=== PATIENT | male | born 1940 | race Caucasian/White ===

== ENCOUNTER 2023-06-20 11:04 | Outpatient (RCR) | payer OTHER, SELFPAY | END 2023-06-20 23:59 | disposition home or self-care (01) | LOC: RPT 11:04 | PROVIDERS: ATTENDING PHYSICIAN Physical Medicine & Rehabilitation Pain Medicine; FAMILY PHYSICIAN Family Medicine | DX: M48.062 Spinal stenosis, lumbar region with neurogenic claudication (principal); M47.816 Spondylosis without myelopathy or radiculopathy, lumbar region; Z73.6 Limitation of activities due to disability; R26.89 Other abnormalities of gait and mobility; M62.81 Muscle weakness (generalized) | CPT/HCPCS: 97162 ==

== ENCOUNTER 2023-07-20 12:53 | Outpatient (RCR) | payer OTHER, SELFPAY | END 2023-07-20 23:59 | disposition home or self-care (01) | LOC: RPT 12:53 | PROVIDERS: ATTENDING PHYSICIAN Physical Medicine & Rehabilitation Pain Medicine; FAMILY PHYSICIAN Family Medicine | DX: M48.062 Spinal stenosis, lumbar region with neurogenic claudication (principal); M47.816 Spondylosis without myelopathy or radiculopathy, lumbar region; Z73.6 Limitation of activities due to disability; R26.89 Other abnormalities of gait and mobility; M62.81 Muscle weakness (generalized) | CPT/HCPCS: 97010; 97110 ==

== ENCOUNTER 2023-08-03 14:59 | Outpatient (RCR) | payer OTHER, SELFPAY | END 2023-08-03 15:58 | disposition home or self-care (01) | LOC: RPT 14:59 | PROVIDERS: ATTENDING PHYSICIAN Physical Medicine & Rehabilitation Pain Medicine; FAMILY PHYSICIAN Family Medicine | DX: M48.062 Spinal stenosis, lumbar region with neurogenic claudication (principal); M47.816 Spondylosis without myelopathy or radiculopathy, lumbar region; Z73.6 Limitation of activities due to disability; R26.89 Other abnormalities of gait and mobility | CPT/HCPCS: 97010; 97110 ==

== ENCOUNTER → 2023-08-19 20:03 | Outpatient (REF) | payer OTHER, SELFPAY | LOC: MRI 3T 20:03 | PROVIDERS: ATTENDING PHYSICIAN Physical Medicine & Rehabilitation Pain Medicine; FAMILY PHYSICIAN Family Medicine | DX: M54.16 Radiculopathy, lumbar region (principal) | CPT/HCPCS: 72148 ==

== ENCOUNTER 2023-08-30 10:52 | Emergency (ER) | payer OTHER, SELFPAY ==
[2023-08-30 10:52] VITALS: BMI 29.7
[2023-08-30 10:59] VITALS: BP 137/74
--- NOTE | 2023-08-30 12:22 | ED.GENMED ---
History of Present Illness
General
Chief Complaint: DVT/Possible Blood Clot
Source: patient and family
Exam Limitations: none
Time Seen by Provider: 08/30/23 11:28
Nursing documentation reviewed up to this point in time: agreed with
Travel History
Have you had any contact with someone who has COVID-19?: No
Do you have any symptoms of coronavirus? Fever > 100 degrees, chills, cough, shortness of breath, sore throat, loss of taste or smell, muscle aches, or headache?: No
History of Present Illness
History of Present Illness:
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
along with swelling, noted 1 day after receiving his epidural injection. Denies fever or chills. Denies direct trauma. Denies new injury. Denies loss of sensation or weakness. Patient denies any pain at rest but is brought on with
weightbearing. Patient currently uses walker at baseline. Denies abdominal pain. Denies nausea or vomiting.
Past History
Past History
ED Past Medical History: CAD, HTN, Hypercholesterolemia and Other (Lumbar disc disease, BPH, UTI)
ED Past Surgical History: Cardiac (PTCA with stent February 2007) and Orthopedic (Knee replacement)
Social History
Tobacco: Non-smoker
Alcohol: Occasional (Rare)
Drug: None
Personal:
Living: with family
Employment: Retired
Family History
Family History: Hypertension
Review of Systems
Review of Systems
Allergies reviewed?: Yes
All Other Systems: ROS reviewed and negative except as documented in HPI and ROS
Constitutional: Reports no symptoms; Denies fever
Respiratory: Reports no symptoms; Denies trouble breathing
Cardiac: Reports no symptoms
ABD/GI: Reports no symptoms; Denies nausea or vomiting
Musculoskeletal: Reports edema and back pain
Skin: Reports no symptoms
Phy Exam
Physical Exam
Physical Exam:
Physical Exam
General: no apparent distress, not acutely ill. afebrile
Head: nc/at. eomi
Neck: supple. normal range of motion.
Abdomen: normal bowel sounds. not tender.
Neuro: alert and oriented. no focal neurological deficits
Skin: no rash
Psychiatric: well kept. interactive and cooperative
Extremities: no edema. no calf tenderness. mild tenderness to palpation over right lateral hip without erythema/ecchymosis.
Course
Orders/Labs/Results
Orders:
Orders
08/30/23 11:38
CR Hip - RT w/wo Pel 2-3 Vw* Urgent
Comment:
Reason For Exam: pain w swelling
Include a pelvis x-ray?: Yes
Legs, Right US [US Periph Venous LOWER Ext RT] Urgent
Comment:
Reason For Exam: swelling
Vital Signs
Initial and Last Documented VS:
Initial Vital Signs
Temp Pulse Resp BP Pulse Ox
98.7 F 64 20 137/74 97
08/30/23 10:59 08/30/23 10:59 08/30/23 10:59 08/30/23 10:59 08/30/23 10:59
Last Documented Vital Signs
Temp Pulse Resp BP Pulse Ox
98.3 F 59 20 178/83 98
08/30/23 13:20 08/30/23 13:20 08/30/23 13:20 08/30/23 13:20 08/30/23 13:20
MDM/Problems Addressed
MDM/Problems Addressed:
US LE: no DVT
X-ray hip/pelvis: arthritic changes noted.
History/exam consistent with ongoing chronic back pain, likely with possible trochanteric bursitis. Pt already has an appt with orthopaedic surgery later this afternoon. Otherwise, patient is afebrile, hemodynamically stable, and nontoxic appearing
at time of discharge, to the care of his family.
*Critical Care Note
Total Time (30-74mins, 75-104mins- exclusive of procedures): Not Applicable
ED Attending Note
-
Portions of this chart may have been created with voice recognition software.� Occasional wrong word or��sound alike� substitutions may have occurred due to the inherent limitations of voice recognition software.
Discharge Plan
Departure
Patient Disposition: Home (Routine Discharge)
Date of Disposition: 08/30/23
Time of Disposition: 13:02
Patient with high blood pressure during this ER visit?: Yes
Condition: Good
Discharge Problem:
Back pain, Leg swelling
Instructions: Back Pain
Prescriptions:
No Action
aspirin 81 MG tablet,delayed release (DR/EC)
81 mg PO DAILY
finasteride 5 MG tablet
5 mg PO DAILY
Referrals:
Kwan Newberry MD [Family Provider] -
Activity Restrictions/Additional Instructions:
As discussed, please follow up with your orthopaedic surgeon, as scheduled later this afternoon for further evaluation and treatment.
Interventions
Interventions:
*Risk Screen - Suicide Last Done: 08/30/23 10:59
*General Assessment Last Done: 08/30/23 10:59
*Neglect/Abuse Screening Last Done: 08/30/23 10:59
*ED COVID-19 Vaccine History Last Done: 08/30/23 11:50
*Nursing Disposition Last Done: 08/30/23 13:20
ED- Cardiac Assessment Last Done: 08/30/23 11:48
ED- Pulmonary Assessment Last Done: 08/30/23 11:48
ED-Peripheral Vascular Assessment Last Done: 08/30/23 11:48
ED-Skin Assessment Last Done: 08/30/23 11:48
Discharge Date and Time
Discharge Date/Time: 08/30/23 13:21
Print Language: [place]
[2023-08-30 13:20] VITALS: BP 178/83
== END 2023-08-30 13:21 | disposition home or self-care (01) ==
LOC: EMR 10:52
PROVIDERS: EMERGENCY PHYSICIAN Emergency Medicine; FAMILY PHYSICIAN Family Medicine
DX: M54.9 Dorsalgia, unspecified (principal); M79.604 Pain in right leg; G89.29 Other chronic pain; I10 Essential (primary) hypertension
CPT/HCPCS: 99284; 73502; 93971

== ENCOUNTER → 2023-09-05 07:24 | Outpatient (REF) | payer OTHER, SELFPAY | LOC: EMG 07:24 | PROVIDERS: ATTENDING PHYSICIAN Physician Assistant; FAMILY PHYSICIAN Family Medicine | DX: M54.16 Radiculopathy, lumbar region (principal); M48.062 Spinal stenosis, lumbar region with neurogenic claudication; R20.0 Anesthesia of skin | CPT/HCPCS: 95886; 95910 ==

== ENCOUNTER 2023-10-25 15:57 | Emergency (ER) | payer OTHER, SELFPAY ==
[2023-10-25 16:00] VITALS: BP 118/92
--- NOTE | 2023-10-25 16:34 | ED.GENMED ---
History of Present Illness
General
Chief Complaint: Musculo-Skeletal Complaint
Source: patient and family
Exam Limitations: none
Time Seen by Provider: 10/25/23 16:17
Nursing documentation reviewed up to this point in time: agreed with
History of Present Illness
History of Present Illness:
83-year-old male with past medical history of heart disease presenting to the emergency department today with concerns of left upper leg discomfort has been intermittent over the past month feels a muscle spasm. Seems to last for a few minutes at a
time and is very severe. Denies any symptoms at this point. Denies any specific urinary symptoms at this moment any abdominal pain fevers. Does have history of back issues.
Past History
Past History
ED Past Medical History: CAD, HTN, Hypercholesterolemia and Other (Lumbar disc disease, BPH, UTI)
ED Past Surgical History: Cardiac (PTCA with stent February 2007) and Orthopedic (Knee replacement)
Social History
Tobacco: Non-smoker
Alcohol: Occasional (Rare)
Drug: None
Personal:
Living: with family
Employment: Retired
Family History
Family History: Hypertension
Review of Systems
Review of Systems
Allergies reviewed?: Yes
All Other Systems: ROS reviewed and negative except as documented in HPI and ROS
Phy Exam
Physical Exam
Physical Exam:
GENERAL: Alert , in no apparent distress
EYE: pupils equal and reactive
NECK: Supple, no significant adenopathy.
ENT: o/p clr, mmm.
CARDIAC: Regular rate and rhythm .
LUNGS: Clear breath sounds bilaterally, no acute respiratory distress, no wheezes/rales/rhonchi
ABDOMEN: Soft, without focal tenderness, no r/g, no cvat
NEUROLOGICAL: Alert and oriented, no focal neuro deficits
SKIN: Warm and dry, skin intact.
MUSCULOSKELETAL: No edema, well perfused.
PSYCH: Normal and appropriate interaction.
Course
Orders/Labs/Results
Orders:
Orders
10/25/23 16:56
Lumbar Spine, 2 or 3 View [CR Lumbar Spine 2 Or 3 Views] Urgent
Comment:
Reason For Exam: low back pain
Venous Doppler Lwr Ext Left [US Periph Venous LOWER Ext LT] Urgent
Comment:
Reason For Exam: thigh pain
10/25/23 17:10
BMP [Basic Metabolic Panel] Urgent
CBC/With Diff [Complete Blood Count/With Diff] Urgent
Abnormal Lab Results
10/25/23
17:10
RBC 4.03 L 10^6/uL
(4.70-6.10)
MCV 97.0 H fL
(80.0-94.0)
MCH 32.5 H pg
(27.0-31.0)
Absolute Monos (auto) 0.7 H 10^3/uL
(0.1-0.6)
Lymphocytes % 20.2 L %
(20.5-51.1)
Monocytes % 9.6 H %
(1.7-9.3)
10/25/23 17:10
10/25/23 17:10
Vital Signs
Initial and Last Documented VS:
Initial Vital Signs
Temp Pulse Resp BP Pulse Ox
97.4 F 71 16 118/92 98
10/25/23 16:00 10/25/23 16:00 10/25/23 16:00 10/25/23 16:00 10/25/23 16:00
Last Documented Vital Signs
Temp Pulse Resp BP Pulse Ox
97.4 F 71 16 118/92 98
10/25/23 16:00 10/25/23 16:00 10/25/23 16:00 10/25/23 16:00 10/25/23 16:00
MDM/Problems Addressed
MDM/Problems Addressed:
83-year-old male presenting to the emergency department today with concerns of left upper thigh discomfort described as spasm. Seems to be to the inner thigh. On arrival here vital signs are normal patient no distress no reproduced symptoms. He
claims that the symptoms are intermittent. Ultrasound was performed of the leg without acute abnormalities x-ray of the back without acute abnormalities either. Consistent with spasm. It was explained to the patient as well as the patient's
family that it is not advisable to use a muscle relaxer at his age considering this can increase risk of falling. They claim that he lives in a place where he does have help and would be able to be monitored while taking medication and that when he
gets the potential spasm that it is unbearable pain that they would need a medication to give as needed. It was explained that there is certainly risk of taking muscle relaxer but after gauging risk-benefit ratio with the family and having a
thorough discussion they elected to try a small dose of Valium as needed but will need to monitor very closely at home when doing so. Otherwise patient stable for discharge return precautions given.
*Critical Care Note
Total Time (30-74mins, 75-104mins- exclusive of procedures): Not Applicable
ED Attending Note
-
Portions of this chart may have been created with voice recognition software.� Occasional wrong word or��sound alike� substitutions may have occurred due to the inherent limitations of voice recognition software.
Discharge Plan
Departure
Patient Disposition: Home (Routine Discharge)
Date of Disposition: 10/25/23
Time of Disposition: 18:35
Patient with high blood pressure during this ER visit?: No
Condition: Good
Covid-19: Not Applicable
Discharge Problem:
Leg pain
Instructions: Muscle and Bone Pain (DC)
Prescriptions:
New
diazepam [Valium] 2 mg tablet
2 mg PO BID PRN (Reason: muscle spasm) Qty: 7 0RF
No Action
aspirin 81 MG tablet,delayed release (DR/EC)
81 mg PO DAILY
finasteride 5 MG tablet
5 mg PO DAILY
Referrals:
Kwan Newberry MD [Family Provider] -
Sunil Skaggs MD [Active] - Follow up in 5-7 days
Activity Restrictions/Additional Instructions:
You came to the emergency department today with concerns of muscle spasm of your left leg. Here you had a reassuring assessment no emergent findings on the workup. Please have closely with the pain management doctor. You can also take the muscle
relaxer 1 tab every 8 hours as needed. Please do not drive or operate machinery while take this medication as this can cause drowsiness. Return to the emergency department for any worsening, new or concerning symptoms.
Interventions
Interventions:
*Risk Screen - Suicide Last Done: 10/25/23 16:04
*General Assessment Last Done: 10/25/23 16:04
*Neglect/Abuse Screening Last Done: 10/25/23 16:04
ED- Fall Risk Assessment Last Done: 10/25/23 18:49
*ED COVID-19 Vaccine History Last Done: 10/25/23 16:59
*Nursing Disposition Last Done: 10/25/23 18:49
ED-Musculoskeletal Assessment Last Done: 10/25/23 16:59
Discharge Date and Time
Discharge Date/Time: 10/25/23 18:50
Print Language: [place]
[2023-10-25 17:21] LABS: % Basophils 0.8 % (0-2); % Immature Granulocytes 0.3 % (0-0.5); % Lymphocytes 20.2 % (20.5-51.1); % Monocytes 9.6 % (1.7-9.3); % Neutrophils 66.1 % (42.2-75.2); Absolute Basophils 0.1 10^3/uL (0-0.2); Absolute Eosinophils 0.2 10^3/uL (0-0.7); Absolute Lymphocytes 1.6 10^3/uL (1.2-3.4); Absolute Monocytes 0.7 10^3/uL (0.1-0.6); Absolute Neutrophils 5.1 10^3/uL (1.4-6.5); Hematocrit 39.1 % (39.0-52.0); Hemoglobin 13.1 g/dL (13.0-18.0); Mean Corp Hgb Conc. 33.5 g/dL (33.0-37.0); Mean Corpuscular Hgb 32.5 pg (27.0-31.0); Mean Platelet Volume 8.7 fL (7.4-10.4); Nucleated Red Blood Cells % 0 % (-); Platelet Count 274 10^3/uL (130-400); Red Blood Cell Count 4.03 10^6/uL (4.70-6.10); Red Cell Dist. Width 12.8 % (11.5-14.5); White Blood Cell Count 7.7 10^3/uL (4.8-10.8)
[2023-10-25 17:32] LABS: Blood Urea Nitrogen 20 mg/dl (9-20); Calcium 9.5 mg/dl (8.4-10.2); Carbon Dioxide 25 mmol/L (22-30); Chloride 103 mmol/L (98-107); Glucose 80 mg/dl (70-99); Potassium 3.8 mmol/L (3.5-5.1); Sodium 137 mmol/L (135-145); eGFR > 60.00
== END 2023-10-25 18:50 | disposition home or self-care (01) ==
LOC: EMR 15:57
PROVIDERS: Physician Assistant; EMERGENCY PHYSICIAN Emergency Medicine; FAMILY PHYSICIAN Family Medicine
DX: M79.652 Pain in left thigh (principal); M62.838 Other muscle spasm; M54.50 Low back pain, unspecified; R26.2 Difficulty in walking, not elsewhere classified; R39.15 Urgency of urination; I25.10 Atherosclerotic heart disease of native coronary artery without angina pectoris; I10 Essential (primary) hypertension; E78.00 Pure hypercholesterolemia, unspecified; N40.0 Benign prostatic hyperplasia without lower urinary tract symptoms; G30.9 Alzheimer's disease, unspecified; F02.80 Dementia in other diseases classified elsewhere, unspecified severity, without behavioral disturbance, psychotic disturbance, mood disturbance, and anxiety; I25.2 Old myocardial infarction; Z87.440 Personal history of urinary (tract) infections; Z95.5 Presence of coronary angioplasty implant and graft; Z96.651 Presence of right artificial knee joint
CPT/HCPCS: 99284; 72100; 80048; 85025; 93971

== ENCOUNTER 2023-12-14 09:23 | Emergency (ER) | payer OTHER, SELFPAY ==
[2023-12-14 09:25] VITALS: BP 131/72
[2023-12-14 10:39] VITALS: BP 139/81
--- NOTE | 2023-12-14 10:39 | ED.GENMED ---
History of Present Illness
General
Chief Complaint: Abdominal Pain
Source: patient
Time Seen by Provider: 12/14/23 10:23
History of Present Illness
History of Present Illness:
83-year-old male presents to the emergency room for evaluation with his and daughter. Patient evidently developed abdominal pain last night. Patient seems to be going now. However when it was present it was quite significant. He retched but
did not vomit. No diarrhea. Patient was observed to have chills and felt cold to the touch. Patient does have history of dementia and this does limit his ability provide history of his family seems to be able to fill with most details.
Past History
Past History
ED Past Medical History: CAD, HTN, Hypercholesterolemia and Other (Lumbar disc disease, BPH, UTI)
ED Past Surgical History: Cardiac (PTCA with stent February 2007) and Orthopedic (Knee replacement)
Social History
Tobacco: Non-smoker
Alcohol: Occasional (Rare)
Drug: None
Personal:
Living: with family
Employment: Retired
Family History
Family History: Hypertension
Phy Exam
Physical Exam
Physical Exam:
General: Awake, Alert, Oriented X3. No acute distress.
Vitals: unremarkable
Head: Atraumatic
Eyes: Pupils equal, EOMI
Throat: Airway intact, no exudates
Neck: Trachea midline
Lungs: Clear and equal b/l
Heart: Regular rate, no murmurs
Abd: Soft, Nontender, No pulsatile mass
Neuro: Nonfocal
Skin: Warm, dry, no rash
Extremities: pulses equal b/l, no edema
Course
Orders/Labs/Results
Orders:
Orders
12/14/23 09:29
Electrocardiogram (*1) Urgent
Reason for Study: Abdominal Pain
12/14/23 09:30
EKG- Treatment ONCE
12/14/23 10:38
Urinalysis Reflex To Culture Urgent
12/14/23 10:50
COVID-19 Antigen Urgent
Source: Nasal Swab
Complete Blood Count/With Diff Urgent
Comprehensive Metabolic Panel Urgent
Lipase Urgent
Abnormal Lab Results
12/14/23
10:50
WBC 11.3 H 10^3/uL
(4.8-10.8)
RBC 3.96 L 10^6/uL
(4.70-6.10)
Hct 37.7 L %
(39.0-52.0)
MCV 95.2 H fL
(80.0-94.0)
MCH 33.8 H pg
(27.0-31.0)
Abs Immat Gran (auto) 0.1 H 10^3/uL
(0-0.05)
Absolute Neuts (auto) 9.7 H 10^3/uL
(1.4-6.5)
Absolute Lymphs (auto) 0.7 L 10^3/uL
(1.2-3.4)
Absolute Monos (auto) 0.8 H 10^3/uL
(0.1-0.6)
Neutrophils % 85.5 H %
(42.2-75.2)
Lymphocytes % 6.2 L %
(20.5-51.1)
Glucose 116 H mg/dl
(70-99)
12/14/23 10:50
12/14/23 10:50
Vital Signs
Initial and Last Documented VS:
Initial Vital Signs
Temp Pulse Resp BP Pulse Ox
97.7 F 70 18 131/72 97
12/14/23 09:25 12/14/23 09:25 12/14/23 09:25 12/14/23 09:25 12/14/23 09:25
Last Documented Vital Signs
Temp Pulse Resp BP Pulse Ox
97.9 F 63 16 137/71 97
12/14/23 12:44 12/14/23 12:44 12/14/23 12:44 12/14/23 12:00 12/14/23 12:44
MDM/Problems Addressed
Differential Diagnosis Includes:
appy, diverticulitis, uti
MDM/Problems Addressed:
Patient has no reproducible abdominal pain on my physical exam. His labs are essentially normal. Patient continues to have no abdominal pain through his stay here in the emergency room. A urinalysis was ordered but the patient has not provided
urine yet. Family states that patient is getting a bit antsy and given he is asymptomatic they would like to take him home. This is not unreasonable they agree to return if the pain returns.
*Pulse Oximetry
Patient hypoxic: no
*EKG
Interpreted by ED Provider?: Yes
Heart Rate: 67
Rate: normal
Rhythm: sinus
QRS Pattern: right bundle branch block
Ischemia: non-specific ST changes
*Critical Care Note
Total Time (30-74mins, 75-104mins- exclusive of procedures): Not Applicable
Patient Management
Social determinants of health affecting care: Living situation and Strong social support
ED Attending Note
-
Portions of this chart may have been created with voice recognition software.� Occasional wrong word or��sound alike� substitutions may have occurred due to the inherent limitations of voice recognition software.
Discharge Plan
Departure
Patient Disposition: Home (Routine Discharge)
Date of Disposition: 12/14/23
Time of Disposition: 12:22
Patient with high blood pressure during this ER visit?: Yes
Discharge Problem:
Abdominal pain
Instructions: Abdominal Pain
Prescriptions:
No Action
aspirin 81 MG tablet,delayed release (DR/EC)
81 mg PO DAILY
finasteride 5 MG tablet
5 mg PO DAILY
diazepam [Valium] 2 mg tablet
2 mg PO BID PRN (Reason: muscle spasm) Qty: 7 0RF
Referrals:
Kwan Newberry MD [Family Provider] -
Interventions
Interventions:
*Risk Screen - Suicide Last Done: 12/14/23 10:56
*General Assessment Last Done: 12/14/23 10:56
*Neglect/Abuse Screening Last Done: 12/14/23 10:56
ED- Fall Risk Assessment Last Done: 12/14/23 10:58
*ED COVID-19 Vaccine History Last Done: 12/14/23 10:56
*Nursing Disposition Last Done: 12/14/23 12:44
ZZ-Hfzlce-Cqgcaxfecp Assessment Last Done: 12/14/23 10:58
Discharge Date and Time
Discharge Date/Time: 12/14/23 12:45
Print Language: [place]
[2023-12-14 10:55] VITALS: BMI 25.7
[2023-12-14 10:56] VITALS: BP 139/81
[2023-12-14 11:00] VITALS: BP 153/72
[2023-12-14 11:10] LABS: % Basophils 0.4 % (0-2); % Eosinophils 0.6 % (0-6); % Immature Granulocytes 0.4 % (0-0.5); % Lymphocytes 6.2 % (20.5-51.1); % Monocytes 6.9 % (1.7-9.3); % Neutrophils 85.5 % (42.2-75.2); Absolute Eosinophils 0.1 10^3/uL (0-0.7); Absolute Immature Granulocytes 0.1 10^3/uL (0-0.05); Absolute Lymphocytes 0.7 10^3/uL (1.2-3.4); Absolute Monocytes 0.8 10^3/uL (0.1-0.6); Absolute Neutrophils 9.7 10^3/uL (1.4-6.5); Hematocrit 37.7 % (39.0-52.0); Hemoglobin 13.4 g/dL (13.0-18.0); Mean Corp Hgb Conc. 35.5 g/dL (33.0-37.0); Mean Corpuscular Hgb 33.8 pg (27.0-31.0); Mean Corpuscular Volume 95.2 fL (80.0-94.0); Nucleated Red Blood Cells % 0 % (-); Platelet Count 291 10^3/uL (130-400); Red Blood Cell Count 3.96 10^6/uL (4.70-6.10); Red Cell Dist. Width 12.9 % (11.5-14.5); White Blood Cell Count 11.3 10^3/uL (4.8-10.8)
[2023-12-14 11:12] LABS: ALT (SGPT) 17 U/L (0-50); AST (SGOT) 31 U/L (17-59); Albumin 4.3 g/dl (3.5-5.0); Alkaline Phosphatase 67 U/L (38-126); Blood Urea Nitrogen 15 mg/dl (9-20); Calcium 9.8 mg/dl (8.4-10.2); Carbon Dioxide 27 mmol/L (22-30); Chloride 102 mmol/L (98-107); Estimated Creatinine Clearance 50 ml/min; Glucose 116 mg/dl (70-99); Sodium 135 mmol/L (135-145); Total Bilirubin 0.6 mg/dl (0.2-1.3); Total Protein 6.5 g/dl (6.3-8.2); eGFR > 60.00
[2023-12-14 11:31] LABS: COVID-19 Antigen Negative (Negative)
[2023-12-14 12:00] VITALS: BP 137/71
[2023-12-14 12:07] LABS: Lipase 97 U/L (23-300)
== END 2023-12-14 12:45 | disposition home or self-care (01) ==
LOC: EMR 09:23
PROVIDERS: EMERGENCY PHYSICIAN Emergency Medicine; FAMILY PHYSICIAN Family Medicine
DX: R10.9 Unspecified abdominal pain (principal); R68.83 Chills (without fever); Z11.52 Encounter for screening for COVID-19; I45.10 Unspecified right bundle-branch block; I25.10 Atherosclerotic heart disease of native coronary artery without angina pectoris; I10 Essential (primary) hypertension; E78.00 Pure hypercholesterolemia, unspecified; F03.90 Unspecified dementia, unspecified severity, without behavioral disturbance, psychotic disturbance, mood disturbance, and anxiety; N40.0 Benign prostatic hyperplasia without lower urinary tract symptoms; Z95.5 Presence of coronary angioplasty implant and graft; Z96.659 Presence of unspecified artificial knee joint; Z87.440 Personal history of urinary (tract) infections; Z79.82 Long term (current) use of aspirin
CPT/HCPCS: 99284; 80053; 83690; 85025; 87811; 93005

== ENCOUNTER 2023-12-16 02:34 | Inpatient (IN) | payer OTHER, SELFPAY ==
[2023-12-15 20:32] VITALS: BP 129/79
[2023-12-15] MEDS: TORADOL 15 MG IV (22:21)
[2023-12-15 22:24] VITALS: BP 139/76
[2023-12-15 22:24] LABS: % Basophils 0.3 % (0-2); % Eosinophils 1.1 % (0-6); % Immature Granulocytes 0.4 % (0-0.5); % Lymphocytes 9.9 % (20.5-51.1); % Neutrophils 74.3 % (42.2-75.2); Absolute Eosinophils 0.2 10^3/uL (0-0.7); Absolute Immature Granulocytes 0.1 10^3/uL (0-0.05); Absolute Lymphocytes 1.4 10^3/uL (1.2-3.4); Absolute Monocytes 1.9 10^3/uL (0.1-0.6); Absolute Neutrophils 10.2 10^3/uL (1.4-6.5); Hematocrit 37.4 % (39.0-52.0); Hemoglobin 12.9 g/dL (13.0-18.0); Mean Corp Hgb Conc. 34.5 g/dL (33.0-37.0); Mean Corpuscular Hgb 32.4 pg (27.0-31.0); Mean Platelet Volume 8.9 fL (7.4-10.4); Nucleated Red Blood Cells % 0 % (-); Platelet Count 312 10^3/uL (130-400); Red Blood Cell Count 3.98 10^6/uL (4.70-6.10); Red Cell Dist. Width 13.4 % (11.5-14.5); White Blood Cell Count 13.7 10^3/uL (4.8-10.8)
--- NOTE | 2023-12-15 22:36 | ED.GENMED ---
History of Present Illness
<CASSIDY Lombardo (Lenka) - Last Filed: 12/16/23 01:40>
General
Chief Complaint: Flank Pain
Source: patient and spouse
Exam Limitations: dementia (Alzheimers)
Time Seen by Provider: 12/15/23 22:31
Nursing documentation reviewed up to this point in time: agreed with except (RLQ pain (not flank pain))
History of Present Illness
History of Present Illness:
Pt is an 83yo male resting comfortably in bed with at bedside with PMHx of Alzheimers, CVA, CA, HTN/HLD who presents to the ED for RLQ abdominal pain since 1800. Pt was seen here yesterday for the same symptoms, but was discharged d/t pain
improvement and family request to go home. After discharge yesterday, pt was pain free until 30-60 minutes after dinner when, per , he screamed out in pain, clutching his RLQ. Pt continued to scream, so they came back to the ED. states the
pain seemed to be frequent muscle spasms with associated retching, but no vomiting. His Tmax was 100.3F. The pain is currently not present on exam, it was managed with Toradol. Yesterday, the pain also occurred after dinner, and was relieved with
pepto-bismol. Denies VELEZ, fevers prior to today, dysphagia, acid reflux, chest pain, new back pain (pt has chronic back pain), complaints of urinary burning, frequency, urgency, or hesitancy, rashes.
Unknown when last bowel movement was, states unsure if patient went yesterday, and he did not pass stool today. Normally he has loose stool daily, for which he takes pepto bismol with control.
No prior abdominal surgeries.
Unable to obtain a UA yesterday prior to pt/family requesting to leave.
WBC yesterday 11.3
Past History
<CASSIDY Lombardo (Lenka) - Last Filed: 12/16/23 01:40>
Past History
ED Past Medical History: CAD, HTN, Hypercholesterolemia and Other (Lumbar disc disease, BPH, UTI)
ED Past Surgical History: Cardiac (PTCA with stent February 2007) and Orthopedic (Knee replacement)
Social History
Tobacco: Non-smoker
Alcohol: Occasional (Rare)
Drug: None
Personal:
Living: with family
Employment: Retired
Family History
Family History: Hypertension
Phy Exam
<CASSIDY Lombardo (Lenka) - Last Filed: 12/16/23 01:40>
General Physical Exam
General Presentation: well appearing and no apparent distress (pt laying in bed, cracking jokes)
General age: appears stated age
General Skin: warm and dry
General Habitus: normal
General Mental: alert
General Hydration: appears well hydrated
ENT Exam
ENT Exam: swallowing well
Eye Exam
Eye Exam: conjunctiva normal
Cardiovascular Exam
Cardiovascular Exam: regular rate/rhythm, no edema and normal peripheral pulses
Pulmonary Exam
Pulmonary Exam: lungs clear, no respiratory distress, no rales, no rhonchi and no cough
Gastrointestinal Exam
Gastrointestinal Exam: normal bowel sounds, non tender, soft, non distended and no cva tenderness
Palpation: left upper quadrant: No tenderness (with light or deep palpation), left lower quadrant: No tenderness (with light or deep palpation), right upper quadrant: No tenderness (with light or deep palpation), right lower quadrant: No tenderness
(with light or deep palpation) and generalized: No tenderness (with light or deep palpation)
Auscultation of Abdomen: normal
Neurological Exam
Neurological Exam: alert
Skin Exam
Skin Exam: normal color, warm/dry and no rash
Course
<CASSIDY Lombardo (Lenka) - Last Filed: 12/16/23 01:40>
Orders/Labs/Results
Orders:
Orders
12/15/23 22:15
Ketorolac [Toradol] 15 mg .ROUTE .STK-MED ONE
12/15/23 22:18
Complete Blood Count/With Diff Urgent
Comprehensive Metabolic Panel Urgent
12/15/23 22:20
Ketorolac [Toradol] 15 mg IV NOW STA
12/15/23 23:17
Urinalysis Reflex To Culture Urgent
Date Specimen was Collected: 12/15/23
Time Specimen was Collected: 20:36
12/15/23 23:18
CT Abd/pel Without Iv Or Oral Urgent
Comment:
Reason For Exam: r flank pain
12/16/23 00:00
US Abdomen Complete/Upper Urgent
Reason For Exam: RUQ abd pain
12/16/23 01:26
Piperacillin/Tazo 4.5 Gram [Zosyn] 4.5 gram in 100 ml IV NOW
12/16/23 01:30
0.9% Sodium Chloride 1000 ml [Nss] 1,000 ml IV 250 mls/hr
12/16/23 Breakfast
NPO
Allow oral meds: No
Allow clear liquids: No
NPO with Ice Chips: Yes
Abnormal Lab Results
12/15/23
22:18
WBC 13.7 H 10^3/uL
(4.8-10.8)
RBC 3.98 L 10^6/uL
(4.70-6.10)
Hgb 12.9 L g/dL
(13.0-18.0)
Hct 37.4 L %
(39.0-52.0)
MCH 32.4 H pg
(27.0-31.0)
Abs Immat Gran (auto) 0.1 H 10^3/uL
(0-0.05)
Absolute Neuts (auto) 10.2 H 10^3/uL
(1.4-6.5)
Absolute Monos (auto) 1.9 H 10^3/uL
(0.1-0.6)
Lymphocytes % 9.9 L %
(20.5-51.1)
Monocytes % 14.0 H %
(1.7-9.3)
Glucose 104 H mg/dl
(70-99)
12/15/23 22:18
12/15/23 22:18
Vital Signs
Initial and Last Documented VS:
Initial Vital Signs
Temp Pulse Resp BP Pulse Ox
99.9 F 90 18 129/79 97
12/15/23 20:32 12/15/23 20:32 12/15/23 20:32 12/15/23 20:32 12/15/23 20:32
Last Documented Vital Signs
Temp Pulse Resp BP Pulse Ox
99.9 F 82 20 139/76 95
12/15/23 20:32 12/15/23 22:30 12/15/23 22:30 12/15/23 22:24 12/15/23 22:30
<Mike Da Silva, DO - Last Filed: 12/16/23 01:29>
Orders/Labs/Results
Orders:
Orders
12/15/23 22:15
Ketorolac [Toradol] 15 mg .ROUTE .STK-MED ONE
12/15/23 22:18
Complete Blood Count/With Diff Urgent
Comprehensive Metabolic Panel Urgent
12/15/23 22:20
Ketorolac [Toradol] 15 mg IV NOW STA
12/15/23 23:17
Urinalysis Reflex To Culture Urgent
Date Specimen was Collected: 12/15/23
Time Specimen was Collected: 20:36
12/15/23 23:18
CT Abd/pel Without Iv Or Oral Urgent
Comment:
Reason For Exam: r flank pain
12/16/23 00:00
US Abdomen Complete/Upper Urgent
Reason For Exam: RUQ abd pain
12/16/23 01:26
Piperacillin/Tazo 4.5 Gram [Zosyn] 4.5 gram in 100 ml IV NOW
12/16/23 01:30
0.9% Sodium Chloride 1000 ml [Nss] 1,000 ml IV 250 mls/hr
12/16/23 Breakfast
NPO
Allow oral meds: No
Allow clear liquids: No
NPO with Ice Chips: Yes
Abnormal Lab Results
12/15/23
22:18
WBC 13.7 H 10^3/uL
(4.8-10.8)
RBC 3.98 L 10^6/uL
(4.70-6.10)
Hgb 12.9 L g/dL
(13.0-18.0)
Hct 37.4 L %
(39.0-52.0)
MCH 32.4 H pg
(27.0-31.0)
Abs Immat Gran (auto) 0.1 H 10^3/uL
(0-0.05)
Absolute Neuts (auto) 10.2 H 10^3/uL
(1.4-6.5)
Absolute Monos (auto) 1.9 H 10^3/uL
(0.1-0.6)
Lymphocytes % 9.9 L %
(20.5-51.1)
Monocytes % 14.0 H %
(1.7-9.3)
Glucose 104 H mg/dl
(70-99)
12/15/23 22:18
12/15/23 22:18
Vital Signs
Initial and Last Documented VS:
Initial Vital Signs
Temp Pulse Resp BP Pulse Ox
99.9 F 90 18 129/79 97
12/15/23 20:32 12/15/23 20:32 12/15/23 20:32 12/15/23 20:32 12/15/23 20:32
Last Documented Vital Signs
Temp Pulse Resp BP Pulse Ox
99.9 F 82 20 139/76 95
12/15/23 20:32 12/15/23 22:30 12/15/23 22:30 12/15/23 22:24 12/15/23 22:30
<CASSIDY Lombardo (Lenka) - Last Filed: 12/16/23 01:40>
MDM/Problems Addressed
Differential Diagnosis Includes:
DDx: constipation vs cholecystitis vs appendicitis vs IBD
Pt presenting with another episode of severe RLQ pain, yesterday managed with pepto bismol, today managed with Toradol. No pain or tenderness on palpation to abdomen or flank, no peritoneal signs.
Will order CBC, CMP, UA, CTAP w/o contrast
WBC increased from yesterday- 11.3 to 13.7
Chronic conditions affecting care: HTN, CAD and Other (Alzeimers)
<CASSIDY Lombardo (Lenka) - Last Filed: 12/16/23 01:40>
*Critical Care Note
Total Time (30-74mins, 75-104mins- exclusive of procedures): Not Applicable
<CASSIDY Lombardo (Lenka) - Last Filed: 12/16/23 01:40>
Update Note
Update Note:
CTAP w/o contrast
IMPRESSION:
1. Findings suggestive of acute calculus cholecystitis in the appropriate clinical context. Recommend further evaluation with dedicated ultrasound.
2. No urinary calculi or hydronephrosis. Normal appendix.
U/S shows acute cholecystitis. Will admit patient and consult surgery.
Per daughter - due to patient's Alzheimers dementia, he reacts poorly to general anesthesia. He gets 'VERY emotional' and once he sees family, gets angry and somewhat aggressive d/t thinking they abandoned him. Family requesting, if possible, to do
'a different type of anesthesia', state anesthesiologists have been able to accommodate this in the past.
Family requesting contact prior to surgery
*Tatiana () -
Cheryl (daughter) -
ED Attending Note
<CASSIDY Lombardo (Lenka) - Last Filed: 12/16/23 01:40>
-
Portions of this chart may have been created with voice recognition software.� Occasional wrong word or��sound alike� substitutions may have occurred due to the inherent limitations of voice recognition software.
<Mike Da Silva DO - Last Filed: 12/16/23 01:29>
ED Attending Note
Patient seen and examined by attending physician: Yes
I performed the substantive portion of visit, reviewed & personally made and approve the management plan that is documented in note by myself or JUSTICE.: Yes
ED Attending Note:
Pleasant 83-year-old male presents with right-sided upper abdominal pain radiating through to his back. Pain has been present this evening at 6 PM. Patient has been having similar symptoms this week. Was seen in the emergency department yesterday
but discharged due to improvement of symptoms and family request. Tonight pain began shortly after dinner. Patient does have a history of Alzheimer's so history is limited. Patient was seen in conjunction with the PA student. I have reviewed and
agree with the history and treatment plan presented. On my independent physical exam, patient is awake, alert, and at baseline mental status. Heart is regular rate rhythm. Lungs are clear to auscultation bilaterally without wheezes rales or
rhonchi present. Abdomen is soft with tenderness to palpation of right upper quadrant.
Vital signs are stable. Patient not hypoxic
Nursing note reviewed. I agree with nursing documentation up to this point in time.
Home Meds and allergies reviewed.
NUMBER AND COMPLEXITY OF PROBLEMS ADDRESSED AT THE ENCOUNTER
� Chronic conditions affecting care:
� Acute Exacerbation and/or Progression of Chronic Illness:
� Differential Diagnosis includes:
AMOUNT AND/OR COMPLEXITY OF DATA TO BE REVIEWED AND ANALYZED
I performed an independent evaluation of the following and my interpretation is:
EKG:
CT:IMPRESSION:
1. Findings suggestive of acute calculus cholecystitis in the appropriate clinical context. Recommend further evaluation with dedicated ultrasound.
2. No urinary calculi or hydronephrosis. Normal appendix.
X-rays:
Ultrasound:
Laboratory Studies: Transaminases are normal.
Other:
Review of other/old records:
Clinical information was obtained by an independent historian:
Prescriptions/Medications Considered but not given:
Further testing considered but not performed:
RISK OF COMPLICATIONS AND/OR MORBIDITY OR MORTALITY OF PATIENT MANAGEMENT
Social determinants of health affecting care: Good Social Support, family at the bedside
Discussion with other providers:
Escalation of care including admission/observation vs risk of discharge considered:
CRITICAL CARE NOTE:
Total Time (exclusive of procedures):
Update:
Discharge Plan
Departure
Patient Disposition: Admit
Date of Disposition: 12/16/23
Time of Disposition: 01:28
Presentation/result/management discussed w/ accepting /DO: Dr. Dempsey
Discharge Problem:
Acute cholecystitis
Prescriptions:
No Action
aspirin 81 MG tablet,delayed release (/EC)
81 mg PO DAILY
finasteride 5 MG tablet
5 mg PO DAILY
diazepam [Valium] 2 mg tablet
2 mg PO BID PRN (Reason: muscle spasm) Qty: 7 0RF
Referrals:
Kwan Newberry MD [Family Provider] -
Interventions
Interventions:
*Risk Screen - Suicide Last Done: 12/15/23 20:32
*General Assessment Last Done: 12/15/23 20:32
*Neglect/Abuse Screening Last Done: 12/15/23 20:32
OX-Vexgpw-Oixbegugpz Assessment Last Done: 12/15/23 21:47
Discharge Date and Time
Print Language: ERITREAN
[2023-12-15 22:37] LABS: ALT (SGPT) 15 U/L (0-50); AST (SGOT) 20 U/L (17-59); Albumin 4.4 g/dl (3.5-5.0); Alkaline Phosphatase 59 U/L (38-126); Blood Urea Nitrogen 17 mg/dl (9-20); Calcium 9.6 mg/dl (8.4-10.2); Carbon Dioxide 29 mmol/L (22-30); Chloride 99 mmol/L (98-107); Glucose 104 mg/dl (70-99); Potassium 4.1 mmol/L (3.5-5.1); Sodium 138 mmol/L (135-145); Total Bilirubin 0.7 mg/dl (0.2-1.3); Total Protein 6.6 g/dl (6.3-8.2); eGFR > 60.00
[2023-12-15 23:00] VITALS: BP 131/82
[2023-12-16] VITALS (7 sets, daily range): BP systolic 133–158; BP diastolic 68–84; PULSE 71–72; O2SAT 98; BMI 25.1
[2023-12-16] MEDS: ZOSYN 100 IV ×2 (01:34→04:47)
[2023-12-16] MEDS: NSS 1000 IV ×3 (01:56→19:31)
[2023-12-16 03:12] LABS: Urine Albumin Negative (Neg - Trace); Urine Bilirubin Negative (Negative); Urine Character Clear (Clear); Urine Color Yellow; Urine Glucose Negative (Negative); Urine Ketone Negative (Negative); Urine Leukocyte Negative (Negative); Urine Nitrite Negative (Negative); Urine Occult Blood Negative (Negative); Urine Urobilinogen Negative (Neg - 1+); Urine pH 6.5 (5.0-9.0)
--- NOTE | 2023-12-16 03:34 | HPS.HSE ---
Addendum entered and electronically signed by Vasile Bonner MD 12/16/23 13:16:
Okay for aspirin, hold Plavix.
Patient will be under the hospital service.
IR consulted
Addendum entered and electronically signed by Vasile Bonner MD 12/16/23 09:46:
This is an 83-year-old male with a history of dementia, CVA, ND status post stents on DAPT (last dose of Plavix was yesterday) who presents with vague right-sided abdominal pain food fear for the past 1 month. He was seen in the ER on 12/14/2023 and
found to have a mild leukocytosis but discharged home. He re-presented on 12/15/[address] scan which demonstrated a distended gallbladder with sludge and stones as well as diffuse wall thickening. This was redemonstrated on subsequent
ultrasound imaging.
N.p.o., IV fluids, IV antibiotics.
Will consult IR for urgent percutaneous cholecystostomy tube placement.
Will consult the hospitalist to assist with management
Patient and family agreeable to plan of care above.
I spent roughly 60 minutes in total for the care of this patient today including direct patient care and counseling, reviewing labs, imaging, coordination of care, as well as documentation.
Addendum entered and electronically signed by ASHLEIGH Russell 12/16/23 07:09:
was able to contact Tatiana. Med list updated.
Full code at present confirmed with
No allergies, but is naive to Anaesthesia-increase agitation and confusion
Original Note:
Family Physician
-
Family Physician: Kwan Newberry
Chief Complaint
-
'Flank pain'
History of Present Illness
83 y/o patient with PMH of Dementia (Alzheimer's), CVA, ND, HTN, HLD, presents to the ED for RLQ Abdominal pain since evening. Patient is pleasantly confused, oriented to name and , unable to cooperate with admission questions, Family is not at
the bed side.
Per ER note Patient c/o RLQ abdominal pain since 1800. Patient was at the [facility] for the same reasons and patient family requested to go home as pain had subsided. According to , pain seemed to be like muscle spasm with associated
retching, with temp of 100.3. no vomiting noted. Pain was relieved with Pepto bismol. Unknown of last BM. Patient denies any chest pain, shortness of breath or nausea at present.
Medical History
Past Medical History
Past Medical History: Reports CVA, HTN, Hypercholesterolemia and Psychiatric
Past Surgical History: Reports Cardiac (PTCA with stent in 2006)
Social History
Unable to obtain full social history at this time due to: Dementia
Tobacco: Non-smoker
Alcohol: None
Drug: None
Personal:
Living: With Family
Family History
Family History: Not pertinent
Allergies / Home Medications
Allergies reflects when Allergies were last updated in [facility].
Home Medications with original date entered in [facility]
Allergy/Medication List:
Allergies
Allergy/AdvReac Type Severity Reaction Status Date / Time
No Known Allergies Allergy Verified 10/25/23 16:00
Home Medications
aspirin 81 mg tablet,delayed release 81 mg PO DAILY 09/08/15
finasteride 5 mg tablet 5 mg PO DAILY 09/08/15
diazepam 2 mg tablet (Valium) 2 mg PO BID PRN muscle spasm #7 tabs 10/25/23
Review of Systems
-
Unable to obtain full review of systems at this time due to: Dementia
History Source: Patient
A 12 point ROS was completed and negative except as noted: Yes
Constitutional: Reports No Symptoms
EENT: Reports No Symptoms
Respiratory: Reports No Symptoms
Cardiac: Reports No Symptoms
Abdomen/GI: Reports No Symptoms
: Reports No Symptoms
Musculoskeletal: Reports No Symptoms
Skin: Reports No Symptoms
Neurological: Reports No Symptoms
Endocrine: Reports No Symptoms
Hematologic/Lymphatic: Reports No Symptoms
Psych: Reports No Symptoms
Physical Exam
Vital Signs
Vital Signs
Temp Pulse Resp BP Pulse Ox
99.9 F 71 16 148/79 97
12/15/23 20:32 12/16/23 01:37 12/15/23 23:29 12/16/23 01:36 12/15/23 23:15
Physical Exam
General: Well Developed, Well Nourished and No Apparent Distress
HEENT: NormoCephalic, Moist mucous membranes and Atraumatic
Respiratory: Clear and Non Labored Respirations
Cardiac: S1/S2 and Regular Rhythm; No Murmur or Rub
Breast: Deferred by me
GI: Soft, Non Tender, Non Distended and Normal Bowel Sounds; No Organomegaly
Rectal: Deferred by Provider
Genito-urinary: No costovertebral tender
Musculoskeletal: No Clubbing, No Cyanosis and No Edema
Skin: Warm and Dry; No Rash
Neuro: Awake, Alert, Oriented (name and ) and Nonfocal/grossly intact
Hematologic/Lymphatic: No Lymphadenopathy
Psych: Calm, Confused and Other (pleasant )
Laboratory Results
-
12/15/23 22:18
12/15/23 22:18
Laboratory Results
Total Bilirubin 0.7 mg/dl (0.2-1.3) 12/15/23 22:18
AST 20 U/L (17-59) 12/15/23 22:18
ALT 15 U/L (0-50) 12/15/23 22:18
Alkaline Phosphatase 59 U/L (38-126) 12/15/23 22:18
Data Reviewed
-
CT Scan: Image Personally Visualized and interpreted
Lab Data: Labs Reviewed by me
Impression/Plan
-
83 y/o with RLQ abdominal pain
# Abdominal pain likely due to acute calculus cholecystitis
-CT abd/pelvis
Findings suggestive of acute calculus cholecystitis in the appropriate clinical context. Recommend further evaluation with dedicated ultrasound.
2. No urinary calculi or hydronephrosis. Normal appendix.
-WBC 13.7
-US: Acute Cholecystitis
-Continue IV Fluids
-Continue IV Zosyn
-Continue Toradol prn
-continue Zofran prn
-NPO
-Admit to Dr. Bonner
# Essential HTN
-Monitor BP HR
# CAD/Hypercholesteremia
-continue ASA (awaiting Med reconciliation)
# BPH
-Continue Finasteride (waiting for Med reconciliation)
Full Code
VT Prophylaxis: SCD's
Patient unable to cooperate with admission questions. Unable to reach or daughter at present for more information, Called twice at 0615, call goes directly to voice message. Need to update medication after medication reconciliation
[2023-12-16] MEDS: NSS IV ×3 (04:58→18:38)
--- NOTE | 2023-12-16 05:00 | PTCARENOTE ---
Pt arrived to unit from ED via stretcher. Pt. able to stand-pivot from stretcher to bed. Pt AAOx1, self only. Confused, thinks that his left him here after an argument. Pt. pulled out IV shortly after arrival. Med sitter obtained. Pt. continues
to make several attempts to get out of bed and pull out new IV. Difficult to redirect. Clarified with ASHLEIGH Arnett about duplicate IVF order, NSS at 100 mL/hr running. Call barnes within reach. Plan of care ongoing.
[2023-12-16 07:52] LABS: Hematocrit 36.3 % (39.0-52.0); Hemoglobin 12.8 g/dL (13.0-18.0); Mean Corp Hgb Conc. 35.3 g/dL (33.0-37.0); Mean Corpuscular Hgb 32.7 pg (27.0-31.0); Mean Corpuscular Volume 92.8 fL (80.0-94.0); Mean Platelet Volume 9.1 fL (7.4-10.4); Platelet Count 301 10^3/uL (130-400); Red Blood Cell Count 3.91 10^6/uL (4.70-6.10); Red Cell Dist. Width 13.2 % (11.5-14.5); White Blood Cell Count 12.8 10^3/uL (4.8-10.8)
[2023-12-16 08:30] LABS: Blood Urea Nitrogen 14 mg/dl (9-20); Calcium 9.4 mg/dl (8.4-10.2); Carbon Dioxide 25 mmol/L (22-30); Chloride 102 mmol/L (98-107); Estimated Creatinine Clearance 54 ml/min; Glucose 124 mg/dl (70-99); Potassium 3.8 mmol/L (3.5-5.1); Sodium 140 mmol/L (135-145); eGFR > 60.00
[2023-12-16] MEDS: TORADOL 15 MG IV ×2 (09:19→19:32)
--- NOTE | 2023-12-16 11:24 | CON.HOSP ---
Consultation
-
Date/Time Consultation Requested: 12/16/23 09:43
Date/Time Consultation Performed: 12/16/23 11:25
Requesting Provider: Dr. Vasile Bonner
Performing Provider: Dr. Paz Ledezma
Family Physician
-
Family Physician: Kwan Newberry
Chief Complaint
-
abdominal pain
History of Present Illness
Patient is an 83-year-old male with a history of dementia who relies on his for everything and is unaware of his surroundings at baseline along with nerve pain from a 'dropfoot' who has been having stomach pain for the last month. He is unable
to participate with review of systems and history has been obtained from the family at bedside. Patient's family stated that he has had diarrhea and is not eating. He was in the emergency department on Tuesday evening with stomach pain. They say
that he had blood work done which was normal and was discharged. Upon looking at the ED documentation from that visit, it states that the family was getting antsy and given that he was asymptomatic they wanted to take him home. They presented
again with with him complaining of abdominal pain. Pain seems aggravated by eating and because of that he is not eating. He is found to have acute cholecystitis. Plans were to take the patient to the operating room but it was found that he is on
plavix so surgery must be deferred. We are asked to consult for medical management and take the patient on our service.
Medical History
Past Medical History
Past Medical History: Reports Other
Additional Past Medical History:
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
Dementia
Coronary artery disease with stent placement
Previous stroke
Hyperlipidemia
Chronic back pain
Essential Hypertension
Benign prostatic hyperplasia
Past Surgical History: Reports Other
Social History
Unable to obtain full social history at this time due to: Dementia
Tobacco: Non-smoker
Alcohol: Occasional
Personal:
Living: With Family
Allergies / Home Medications
Allergies reflects when Allergies were last updated in [facility].
Home Medications with original date entered in [facility]
Allergy/Medication List:
Allergies
Allergy/AdvReac Type Severity Reaction Status Date / Time
No Known Allergies Allergy Verified 10/25/23 16:00
Home Medications
aspirin 81 mg tablet,delayed release 81 mg PO Q48H Blood Clot Prevention/Tx 09/08/15
finasteride 5 mg tablet 5 mg PO QPM Urinary Issue 09/08/15
diazepam 2 mg tablet (Valium) 2 mg PO BID PRN muscle spasm #7 tabs 10/25/23
amlodipine 5 mg tablet 5 mg PO DAILY Blood Pressure 12/16/23
atorvastatin 40 mg tablet 40 mg PO QPM High Cholesterol 12/16/23
clopidogrel 75 mg tablet 75 mg PO DAILY Blood Clot Prevention/Tx 12/16/23
memantine 10 mg tablet 10 mg PO QPM Alzheimers dementia 12/16/23
pantoprazole 40 mg tablet,delayed release 40 mg PO DAILY Gastrointestinal Issue 12/16/23
rivastigmine 4.6 mg/24 hour transdermal patch 1 patch topical DAILY Alzheimers dementia 12/16/23
Review of Systems
-
Unable to obtain full review of systems at this time due to: Dementia
History Source: Family
Abdomen/GI: Reports Abdominal Pain, Nausea, Vomiting, Diarrhea and Anorexia
Physical Exam
Vital Signs
Vital Signs
Temp Pulse Resp BP Pulse Ox
97.8 F 92 17 133/70 94
12/16/23 07:58 12/16/23 07:58 12/16/23 07:58 12/16/23 07:58 12/16/23 07:58
Physical Exam
General: Well Developed, Well Nourished and No Apparent Distress
HEENT: Normocephalic, Anicteric and Atraumatic
Respiratory: Clear; Negative Wheezes, Rales or Rhonchi
Cardiac: S1/S2 and Regular Rhythm; Negative Murmur
GI: Soft, Non Tender, Non Distended and Normal Bowel Sounds
Musculoskeletal: No Clubbing, No Cyanosis and No Edema
Skin: Warm
Neuro: Awake
Psych: Apparent Dementia
Laboratory Results
-
Laboratory Results
12/16/23 06:58
12/16/23 06:58
Total Bilirubin 0.7 mg/dl (0.2-1.3) 12/15/23 22:18
AST 20 U/L (17-59) 12/15/23 22:18
ALT 15 U/L (0-50) 12/15/23 22:18
Alkaline Phosphatase 59 U/L (38-126) 12/15/23 22:18
Impression / Plan
-
pt is an 83 year old male
acute cholecystitis -- apprec surgery--since on plavix must hold and hold on surgery--IR consult for percutaneous cholecystostomy tube followed by surgery sometime next week--cont IVF
dementia--impacts treatment plans--plans to have stay--concern re: pulling out perc tube--may need restraints--at very least would do medsitter--would continue meds as able
CAD s/p stents/CVA--holding asa/plavix
essential HTN--cont amlodipine as able--if not, IV meds
HLD--can hold statin
chronic back pain--NO longer on valium
hx nerve pain/dropped foot--PT/OT as able
BPH--cont finasteride
DVT proph--SCDs as able
code status--full code
will change attending to hospitalist service
[2023-12-16] MEDS: ZOSYN 50 IV ×3 (12:34→23:39)
[2023-12-16] MEDS: NORVASC 5 MG PO (12:34)
[2023-12-16] MEDS: PROTONIX 40 MG PO (12:34)
[2023-12-16] MEDS: EXELON PATCH 4.6 MG TRANSDERM (12:35)
--- NOTE | 2023-12-16 15:02 | CM ---
Addendum entered by Amina Dolan 12/16/23 16:36:
Plan: home with VN, referral TT to liaison.
Addendum entered by Kathryn Upton 12/16/23 15:10:
PT and OT ordered noted. Should SNF be recommended and family is agreeable, pt will require a repeat PT and OT eval within 24hrs of discharge for auth.
Original Note:
CM reviewed chart. Pt w/hx of dementia. Spoke with pts and dtr. Explained role and discussed anticipated dcp/options. Pt is from home with , ranch style home, w/0ste. [employer] pt was IAMB and was a +1A w/ADLS as needed. Pt has cane, RW, WC,
commode and shower chair- no additional DME needed per . Per , [facility] w/ [facility] recently closed, is agreeable to [facility] at [facility] for all services in place [employer]. Referral to be sent at al. Family will transport home. PCP and Pharm on record
confirmed.
CM will continue to follow to ensure a safe and time discharge.
[2023-12-16] MEDS: NSS (PRESERVATIVE FREE) 0.25 ML IV ×2 (18:04→21:15)
[2023-12-16] MEDS: ATIVAN 0.5 MG IV ×2 (18:05→21:15)
[2023-12-16] MEDS: NAMENDA PO (18:38)
[2023-12-16] MEDS: PROSCAR PO (18:38)
[2023-12-16] MEDS: HALDOL 1 MG IM (19:31)
[2023-12-17] MEDS: ZOSYN 50 IV ×4 (05:38→23:12)
[2023-12-17] MEDS: NSS 1000 IV ×2 (05:39→16:22)
[2023-12-17] MEDS: ATIVAN 0.5 MG IV (06:09)
[2023-12-17] MEDS: FLUSH (NSS) 2 FLUSH IV (06:11)
[2023-12-17 07:00] VITALS: BP 138/73
[2023-12-17 07:17] LABS: INR 1.18; PT 14.8 Sec (11.4-14.6)
[2023-12-17 08:15] LABS: % Basophils 0.3 % (0-2); % Eosinophils 0.8 % (0-6); % Immature Granulocytes 0.3 % (0-0.5); % Lymphocytes 8.4 % (20.5-51.1); % Monocytes 11.6 % (1.7-9.3); % Neutrophils 78.6 % (42.2-75.2); Absolute Eosinophils 0.1 10^3/uL (0-0.7); Absolute Monocytes 1.4 10^3/uL (0.1-0.6); Absolute Neutrophils 9.4 10^3/uL (1.4-6.5); Hematocrit 37.4 % (39.0-52.0); Hemoglobin 13.2 g/dL (13.0-18.0); Mean Corp Hgb Conc. 35.3 g/dL (33.0-37.0); Mean Corpuscular Hgb 33.6 pg (27.0-31.0); Mean Corpuscular Volume 95.2 fL (80.0-94.0); Mean Platelet Volume 9.1 fL (7.4-10.4); Nucleated Red Blood Cells % 0 % (-); Platelet Count 311 10^3/uL (130-400); Red Blood Cell Count 3.93 10^6/uL (4.70-6.10); Red Cell Dist. Width 13.1 % (11.5-14.5)
[2023-12-17 08:20] LABS: ALT (SGPT) 18 U/L (0-50); AST (SGOT) 35 U/L (17-59); Albumin 4.1 g/dl (3.5-5.0); Alkaline Phosphatase 75 U/L (38-126); Blood Urea Nitrogen 11 mg/dl (9-20); Calcium 9.6 mg/dl (8.4-10.2); Carbon Dioxide 23 mmol/L (22-30); Chloride 103 mmol/L (98-107); Estimated Creatinine Clearance 60 ml/min; Glucose 110 mg/dl (70-99); Potassium 4.1 mmol/L (3.5-5.1); Sodium 143 mmol/L (135-145); Total Bilirubin 1.5 mg/dl (0.2-1.3); Total Protein 6.7 g/dl (6.3-8.2); eGFR > 60.00
[2023-12-17] MEDS: EXELON PATCH 4.6 MG TRANSDERM (08:25)
[2023-12-17] MEDS: NORVASC 5 MG PO (08:25)
[2023-12-17] MEDS: ASPIR LOW (ENTERIC COATED) 81 MG PO (08:26)
[2023-12-17] MEDS: PROTONIX 40 MG PO (08:26)
[2023-12-17] MEDS: TORADOL 15 MG IV (10:03)
[2023-12-17] MEDS: RISPERDAL 0.25 MG PO ×2 (10:46→22:00)
--- NOTE | 2023-12-17 12:34 | W.PN.GS2 ---
Today's Communication / Plan
-
CLD
Hold Plavix for tentative OR tuesday
Assessment / Plan
-
83 yo male with h/o CVA, dementia, CAD with remote stents on DAPT with LD of Plavix on 12/14 presenting with ACC
AFVSS
Mild elevation in bilirubin
Mild leukocytosis
--Hold plavix for washout prior to OR for lap henry
--D/W IR, will hold on IR drain unless condition deteriorates: high risk for accidental dislodgement
--Tentative OR tuesday pending patient course
--Ok for CLD
--Trend labs
--Appreciate hospitalist following with us for medical management
Subjective Data
-
Date of Service: December 17, 2023
Patient seen and examined at bedside. Confused, restrained. Denies pain, states he wants to leave. Updated family via telephone
Objective Data
-
Intake and Output
12/16/23 12/17/23 12/18/23
06:59 06:59 06:59
Intake Total 1200 / 1200
Balance 1200 / 1200
Intake:
IV fluids (Total) 1100 / 1100
IV piggybacks 100 / 100
Other:
Number of approximated LARGE 2
amounts of urine
How many times incontinent 6
SATURATED amount urine
Vital Signs
Temp Pulse Resp BP Pulse Ox
97.6 F 81 17 138/73 94
12/17/23 07:00 12/17/23 08:25 12/17/23 07:00 12/17/23 08:25 12/17/23 07:00
Lab Results
12/17/23 06:37
12/17/23 06:37
Calcium 9.6 mg/dl (8.4-10.2) 12/17/23 06:37
Total Bilirubin 1.5 mg/dl (0.2-1.3) H 12/17/23 06:37
AST 35 U/L (17-59) 12/17/23 06:37
ALT 18 U/L (0-50) 12/17/23 06:37
Alkaline Phosphatase 75 U/L (38-126) 12/17/23 06:37
Total Protein 6.7 g/dl (6.3-8.2) 12/17/23 06:37
Albumin 4.1 g/dl (3.5-5.0) 12/17/23 06:37
Physical Exam
-
Anxious, confused
ABD soft, nt, nd
--- NOTE | 2023-12-17 13:50 | W.PN.HOSP.TC ---
Today's Communication/Plan
-
cw abx
cw IV fluids
prn Risperidal for agitation
Assessment / Plan
Assessment / Plan
pt is an 83 year old male
acute cholecystitis -- apprec surgery--since on plavix must hold and hold on surgery--IR consult for percutaneous cholecystostomy tube - they felt CCT is not ideal with is dementia due dislogement etc plus he is not sick with sepsis as off now but i
he does then CCT - Plan is for lap henry on Tuesday -cont IVF.cw emp abx.CLD for now.
dementia with agitation sec to behavioral issues --impacts treatment plans--cw constant reorientation and medical tx. Restraints as needed for safety.
CAD s/p stents/CVA--holding plavix
essential HTN--cont amlodipine as able--if not, IV meds
HLD--can hold statin
chronic back pain--NO longer on valium
hx nerve pain/dropped foot--PT/OT as able
BPH--cont finasteride
DVT proph--SCDs as able
code status--full code
DW at bedside.
Anticipated Discharge: > 48 hours
Subjective/Interval History
-
Date of Service: December 17, 2023
Patient was confused and agitated this morning. Improved after getting Risperdal and being at bedside.
He never behaved this way per .
Patient currently sleepy but arousable. No meaningful conversation.
Objective Data
-
Labs:
Laboratory Results
12/17/23
06:37
WBC 12.0 H
Hgb 13.2
Hct 37.4 L
Plt Count 311
PT 14.8 H
INR 1.18
Sodium 143
Potassium 4.1
Chloride 103
Carbon Dioxide 23
BUN 11
Creatinine 1.0
Glucose 110 H
Calcium 9.6
Total Bilirubin 1.5 H
AST 35
ALT 18
Alkaline Phosphatase 75
Vital Signs:
Vital Signs
Temp Pulse Resp BP Pulse Ox
97.6 F 81 17 138/73 94
12/17/23 07:00 12/17/23 08:25 12/17/23 07:00 12/17/23 08:25 12/17/23 07:00
I&O
12/16/23 12/17/23 12/18/23
06:59 06:59 06:59
Intake Total 1200 / 1200
Balance 1200 / 1200
Review of Systems
-
Unable to obtain full review of systems at this time due to: Dementia
Physical Exam
-
General: Comfortable
HEENT: Negative Moist Mucous Membranes
Respiratory: Non Labored Respirations; Negative Accessory Resp Muscle Use
Cardiac: Regular Rhythm and S1/S2
GI: Soft, Nontender (?), Nondistended and Normal Bowel Sounds
Neuro: Sedated
Psych: Calm and Confused; Negative Agitated (at this min but was this morning)
Data Reviewed
-
Labs: Labs Reviewed by me
--- NOTE | 2023-12-17 14:04 | PTCARENOTE ---
Pt very agitated this morning, confused and unable to orient, lai wrist restraints in place. Pt c/o of pain, nonspecific but gestured he had pain in his legs, 15mg IV Toradol given. Dr Espino notified of increased agitation, 0.25mg PO Risperdal given
at 1045 w/ good result. Lai wrists removed, pt still confused but more calm and able to redirect. at bedside. Dry Cleaning Checker notified upon family's request for anointing of the sick sacrament.
[2023-12-17 15:00] VITALS: BP 149/70
[2023-12-17 16:30] VITALS: BP 122/66; PULSE 93
[2023-12-17] MEDS: NAMENDA PO (17:27)
[2023-12-17] MEDS: PROSCAR PO (17:27)
[2023-12-17] MEDS: TYLENOL 650 MG PO (18:41)
[2023-12-17] MEDS: NAMENDA 10 MG PO (18:41)
--- NOTE | 2023-12-17 22:00 | PTCARENOTE ---
Pt woke up really agitated and confused. Pt wasn't cooperative and pull his IV access. Pt refuse to stay in bed and take any meds. was called per request and came to the hospital. Pt was able to calm down after came and a new Iv access was
inserted. decided to stay and is at bedside. Call barnes within reach and will continue with tx.
[2023-12-17 23:05] VITALS: BP 138/75
[2023-12-18] MEDS: ZOSYN 50 IV ×4 (05:44→23:10)
[2023-12-18] MEDS: NSS 1000 IV (05:50)
[2023-12-18] MEDS: TORADOL 15 MG IV ×2 (05:54→23:09)
[2023-12-18 06:00] VITALS: BMI 24.9
[2023-12-18 07:10] VITALS: BP 142/78
[2023-12-18] MEDS: EXELON PATCH 4.6 MG TRANSDERM (07:23)
[2023-12-18] MEDS: PROTONIX 40 MG PO (07:24)
[2023-12-18] MEDS: NORVASC 5 MG PO (07:24)
[2023-12-18 09:09] LABS: ALT (SGPT) 42 U/L (0-50); AST (SGOT) 67 U/L (17-59); Albumin 3.4 g/dl (3.5-5.0); Alkaline Phosphatase 174 U/L (38-126); Blood Urea Nitrogen 11 mg/dl (9-20); Calcium 8.8 mg/dl (8.4-10.2); Carbon Dioxide 25 mmol/L (22-30); Chloride 107 mmol/L (98-107); Estimated Creatinine Clearance 54 ml/min; Glucose 98 mg/dl (70-99); Potassium 3.4 mmol/L (3.5-5.1); Sodium 141 mmol/L (135-145); Total Bilirubin 1.2 mg/dl (0.2-1.3); Total Protein 5.7 g/dl (6.3-8.2); eGFR > 60.00
[2023-12-18 09:14] LABS: % Basophils 0.4 % (0-2); % Eosinophils 1.7 % (0-6); % Immature Granulocytes 0.3 % (0-0.5); % Lymphocytes 5.6 % (20.5-51.1); % Monocytes 9.3 % (1.7-9.3); % Neutrophils 82.7 % (42.2-75.2); Absolute Basophils 0.1 10^3/uL (0-0.2); Absolute Eosinophils 0.2 10^3/uL (0-0.7); Absolute Lymphocytes 0.7 10^3/uL (1.2-3.4); Absolute Monocytes 1.1 10^3/uL (0.1-0.6); Hematocrit 32.4 % (39.0-52.0); Hemoglobin 11.5 g/dL (13.0-18.0); Mean Corp Hgb Conc. 35.5 g/dL (33.0-37.0); Mean Corpuscular Hgb 33.9 pg (27.0-31.0); Mean Corpuscular Volume 95.6 fL (80.0-94.0); Mean Platelet Volume 9.1 fL (7.4-10.4); Nucleated Red Blood Cells % 0 % (-); Platelet Count 296 10^3/uL (130-400); Red Blood Cell Count 3.39 10^6/uL (4.70-6.10); Red Cell Dist. Width 13.3 % (11.5-14.5); White Blood Cell Count 12.1 10^3/uL (4.8-10.8)
[2023-12-18] MEDS: TYLENOL 650 MG PO ×2 (09:23→16:14)
--- NOTE | 2023-12-18 10:31 | CM ---
Patient having bouts of agitation and confusion per nursing staff. Functionally appears at baseline per PT/OT. Family wants [facility].
Plan: Case management will continue to follow and assist with discharge planning. Home with VN.
--- NOTE | 2023-12-18 11:57 | W.PN.GS2 ---
Today's Communication / Plan
-
Tentative OR tomorrow
Assessment / Plan
-
83 yo male with h/o CVA, dementia, CAD with remote stents on DAPT with LD of Plavix on ?12/14 presenting with ACC
AFVSS
Mild elevation in bilirubin now resolved
Mild leukocytosis persists
--Hold plavix for washout prior to OR for lap henry
--Tentative OR Tuesday pending patient course
--Ok for CLD, NPO after MN
--Trend labs
--Appreciate hospitalist following with us for medical management
Subjective Data
-
Date of Service: December 18, 2023
Patient seen and examined at bedside with Dr. Bonner. present. Denies n/v. No pain. Resting comfortably.
Objective Data
-
Intake and Output
12/17/23 12/18/23 12/19/23
06:59 06:59 06:59
Intake Total 3680 / 3680
Output Total 300 / 300
Balance 3380 / 3380
Intake:
Oral fluids 1380 / 1380
IV fluids (Total) 2100 / 2100
IV piggybacks 200 / 200
Output:
Urine, Voided 300 / 300
Other:
Number of approximated LARGE 2 1
amounts of urine
How many times incontinent 2
MODERATE amount urine
How many times incontinent 6 4
SATURATED amount urine
Vital Signs
Temp Pulse Resp BP Pulse Ox
98.0 F 87 16 142/78 95
12/18/23 07:10 12/18/23 07:10 12/18/23 07:10 12/18/23 07:10 12/18/23 07:10
Lab Results
12/18/23 08:41
12/18/23 08:41
Calcium 8.8 mg/dl (8.4-10.2) 12/18/23 08:41
Total Bilirubin 1.2 mg/dl (0.2-1.3) 12/18/23 08:41
AST 67 U/L (17-59) H 12/18/23 08:41
ALT 42 U/L (0-50) 12/18/23 08:41
Alkaline Phosphatase 174 U/L (38-126) H 12/18/23 08:41
Total Protein 5.7 g/dl (6.3-8.2) L 12/18/23 08:41
Albumin 3.4 g/dl (3.5-5.0) L 12/18/23 08:41
Physical Exam
-
Calm
ABD soft, nt, nd
--- NOTE | 2023-12-18 13:01 | W.PN.HOSP.TC ---
Addendum entered and electronically signed by Nikita Espino MD 12/21/23 10:33:
hypokalemia -replete
Original Note:
Today's Communication/Plan
-
OR tomorrow
CW ABX
Assessment / Plan
Assessment / Plan
pt is an 83 year old male
Acute cholecystitis -- apprec surgery--since on plavix must hold and hold on surgery--IR consult for percutaneous cholecystostomy tube - they felt CCT is not ideal with is dementia due dislodgement etc plus he is not sick with sepsis as off now but
if he does then CCT - Plan is for lap henry on Tuesday - .cw emp abx.CLD for now.
Dementia with agitation sec to behavioral issues --Improved agitation -cw constant reorientation and medical tx. Restraints as needed for safety.
CAD s/p stents/CVA--holding plavix
essential HTN--cont amlodipine as able--if not, IV meds
HLD--can hold statin
chronic back pain--NO longer on valium
hx nerve pain/dropped foot--PT/OT as able
BPH--cont finasteride
DVT proph--SCDs as able
code status--full code
DW at bedside.
Anticipated Discharge: 24 - 48 hours
Subjective/Interval History
-
Date of Service: December 18, 2023
Patient today much more different without any further agitation. He is alert and oriented to place. He denies any abdominal pain. at bedside who also sees much improvement with his cognition.
Objective Data
-
Labs:
Laboratory Results
12/18/23
08:41
WBC 12.1 H
Hgb 11.5 L
Hct 32.4 L
Plt Count 296
Sodium 141
Potassium 3.4 L
Chloride 107
Carbon Dioxide 25
BUN 11
Creatinine 1.1
Glucose 98
Calcium 8.8
Total Bilirubin 1.2
AST 67 H
ALT 42
Alkaline Phosphatase 174 H
Vital Signs:
Vital Signs
Temp Pulse Resp BP Pulse Ox
98.0 F 87 16 142/78 95
12/18/23 07:10 12/18/23 07:10 12/18/23 07:10 12/18/23 07:10 12/18/23 07:10
I&O
12/17/23 12/18/23 12/19/23
06:59 06:59 06:59
Intake Total 3680 / 3680
Output Total 300 / 300
Balance 3380 / 3380
Review of Systems
-
Respiratory: Denies Trouble Breathing
Cardiac: Denies Chest Pain
Abdomen/GI: Denies Nausea or Vomiting
Neuro: Denies Dizzy
Physical Exam
-
General: Comfortable
Respiratory: Non Labored Respirations; Negative Accessory Resp Muscle Use
Cardiac: Regular Rhythm and S1/S2
GI: Soft and Nontender
Neuro: Awake, Alert and Oriented (Place and self)
Psych: Calm and Confused; Negative Agitated
Data Reviewed
-
Labs: Labs Reviewed by me
[2023-12-18] MEDS: KCL 20 MEQ PO (14:10)
[2023-12-18 15:10] VITALS: BP 136/76
[2023-12-18] MEDS: VISBIOME 1 CAP PO (15:56)
[2023-12-18] MEDS: RISPERDAL 0.25 MG PO (16:15)
[2023-12-18] MEDS: NAMENDA 10 MG PO (16:15)
[2023-12-18] MEDS: PROSCAR 5 MG PO (16:15)
--- NOTE | 2023-12-18 23:15 | PTCARENOTE ---
Pt remains confused and oriented to self. is staying over night with pt in room. requested to do bath and wipes in the morning due to pt being calm tonight. Bed alarm turned on at 2300 ,when was going to bed.
[2023-12-19] VITALS (8 sets, daily range): BP systolic 123–152; BP diastolic 56–87; BMI 24.9
[2023-12-19] MEDS: ZOSYN 50 IV ×2 (05:31→17:11)
[2023-12-19] MEDS: FLUSH (NSS) 2 FLUSH IV (05:31)
[2023-12-19 06:25] LABS: % Basophils 0.3 % (0-2); % Eosinophils 1.1 % (0-6); % Immature Granulocytes 0.3 % (0-0.5); % Lymphocytes 10.7 % (20.5-51.1); % Monocytes 10.8 % (1.7-9.3); % Neutrophils 76.8 % (42.2-75.2); Absolute Eosinophils 0.1 10^3/uL (0-0.7); Absolute Lymphocytes 1.3 10^3/uL (1.2-3.4); Absolute Monocytes 1.3 10^3/uL (0.1-0.6); Absolute Neutrophils 9.4 10^3/uL (1.4-6.5); Hematocrit 34.5 % (39.0-52.0); Hemoglobin 12.3 g/dL (13.0-18.0); Mean Corp Hgb Conc. 35.7 g/dL (33.0-37.0); Mean Corpuscular Hgb 32.9 pg (27.0-31.0); Mean Corpuscular Volume 92.2 fL (80.0-94.0); Mean Platelet Volume 8.5 fL (7.4-10.4); Nucleated Red Blood Cells % 0 % (-); Platelet Count 320 10^3/uL (130-400); Red Blood Cell Count 3.74 10^6/uL (4.70-6.10); Red Cell Dist. Width 13.4 % (11.5-14.5); White Blood Cell Count 12.3 10^3/uL (4.8-10.8)
--- NOTE | 2023-12-19 07:32 | W.SUR.PREOP ---
Pre-Operative Surgical Note
-
I have examined this patient prior to the performance of the scheduled procedure. Will plan for a laparoscopic cholecystectomy in the OR today.
The patient's condition is unchanged from the time of the current History and
Physical and the patient is able to undergo the scheduled procedure.
[2023-12-19] MEDS: NORVASC 5 MG PO (08:26)
[2023-12-19] MEDS: VISBIOME 1 CAP PO (08:26)
[2023-12-19] MEDS: PROTONIX 40 MG PO (08:26)
[2023-12-19] MEDS: EXELON PATCH 4.6 MG TRANSDERM (08:26)
[2023-12-19] MEDS: ASPIR LOW (ENTERIC COATED) 81 MG PO (08:26)
[2023-12-19 08:38] LABS: ALT (SGPT) 131 U/L (0-50); AST (SGOT) 280 U/L (17-59); Albumin 3.9 g/dl (3.5-5.0); Alkaline Phosphatase 348 U/L (38-126); Blood Urea Nitrogen 11 mg/dl (9-20); Calcium 9.7 mg/dl (8.4-10.2); Carbon Dioxide 23 mmol/L (22-30); Chloride 105 mmol/L (98-107); Estimated Creatinine Clearance 50 ml/min; Glucose 92 mg/dl (70-99); Potassium 3.7 mmol/L (3.5-5.1); Sodium 143 mmol/L (135-145); Total Bilirubin 3.9 mg/dl (0.2-1.3); Total Protein 6.4 g/dl (6.3-8.2); eGFR > 60.00
--- NOTE | 2023-12-19 10:12 | CHAP ---
Fr. Benjamin Otto of [facility] in [place] anointed the patient on 12/17/23. Time uncertain.
--- NOTE | 2023-12-19 10:18 | W.PN.HOSP.TC ---
Today's Communication/Plan
-
lap henry today
Assessment / Plan
Assessment / Plan
pt is an 83 year old male
Acute cholecystitis -- apprec surgery--since on plavix must hold and hold on surgery--- CCT is not ideal with is dementia due dislodgement etc plus he is not sick with sepsis as off now but if he does then CCT - lap henry today (Tuesday)--cont zosyn
Dementia with agitation sec to behavioral issues --Improved agitation -cw constant reorientation and medical tx. Restraints as needed for safety.
CAD s/p stents/CVA--holding plavix
essential HTN--cont amlodipine as able--if not, IV meds
HLD--can hold statin
chronic back pain--NO longer on valium
hx nerve pain/dropped foot--PT/OT as able
BPH--cont finasteride
DVT proph--SCDs as able
code status--full code
Anticipated Discharge: Within 24 hours
Subjective/Interval History
-
Date of Service: December 19, 2023
pt without c/o
Objective Data
-
Labs:
Laboratory Results
12/19/23 12/19/23
06:00 06:15
WBC Cancelled 12.3 H
Hgb Cancelled 12.3 L
Hct Cancelled 34.5 L
Plt Count Cancelled 320
Sodium Cancelled 143
Potassium Cancelled 3.7
Chloride Cancelled 105
Carbon Dioxide Cancelled 23
BUN Cancelled 11
Creatinine Cancelled 1.2
Glucose Cancelled 92
Calcium Cancelled 9.7
Total Bilirubin 3.9 H D
AST 280 H
ALT 131 H
Alkaline Phosphatase 348 H
Vital Signs:
max temp for 24 hours
12/19/23
00:19
Temp 99.2 F
Vital Signs
Temp Pulse Resp BP Pulse Ox
99.2 F 107 18 152/79 96
12/19/23 00:19 12/19/23 00:19 12/19/23 00:19 12/19/23 00:19 12/19/23 00:19
I&O
12/18/23 12/19/23 12/20/23
06:59 06:59 06:59
Intake Total 3680 / 3680 1450 / 1450
Output Total 300 / 300
Balance 3380 / 3380 1450 / 1450
Review of Systems
-
Unable to obtain full review of systems at this time due to: Dementia
Physical Exam
-
General: Well Developed, Well Nourished and No Apparent Distress
HEENT: Normocephalic and Atraumatic
Respiratory: Clear to Auscultation; Negative Wheezes or Rhonchi
Cardiac: Regular Rhythm and S1/S2; Negative Murmur
GI: Soft, Nontender, Nondistended and Normal Bowel Sounds
Musculoskeletal: No Clubbing, No Cyanosis and No Edema
Neuro: Awake
[2023-12-19] MEDS: ZOSYN IV (11:15)
--- NOTE | 2023-12-19 11:27 | VNURNOTE ---
Chart reviewed. Plan is for mehreen diaz today. VN has been requested. Call placed to spouse Margo. No answer, left a message.
--- NOTE | 2023-12-19 12:36 | VNURNOTE ---
Liaison spoke with patient's daughter Alejandrina to discuss [facility] nurse/therapy, visits, schedule and homebound status. Patient has recently had [facility] services and daughter is agreeable and understands that visits at home will be 1-3 x per week to assess
and teach medical management. Patient is aware that [facility] will contact them for start of care within a few days after discharge from .
[facility] referral accepted in [facility].
--- NOTE | 2023-12-19 12:44 | W.IMMPOSTOP ---
Surgical Immed Post Op Note
-
Primary Surgeon: Vasile Bonner MD
Assisting Surgeon: None
Pre-op Diagnosis: Acute cholecystitis
Post-op Diagnosis: Gangrenous cholecystitis
Procedure Performed: Laparoscopic cholecystectomy with cholangiogram
Anesthesia Type: General
Specimen / Cultures:
1. Gallbladder and contents
2. Gallbladder abscess
Estimated Blood Loss: 11 cc
Complications: None
Operative Findings: Gangrenous cholecystitis. Gallbladder was decompressed with an aspiration needle. Critical view of safety obtained prior to a cholangiogram which demonstrated no filling defects and normal biliary anatomy. Duct ligated with a
clip followed by 0 PDS Endoloop. High insertion of the right hepatic artery along the cystic plate, this was preserved. A small branch to the gallbladder, from this artery was ligated with a clip. No clear cystic artery was identified. There was
a large abscess cavity in the fundus of the gallbladder which was cultured. 19 [place] round Jose Luis drain left in the right upper quadrant.
POST OP PLAN:
Imaging: None
Labs: Routine AM
Diet: Advance to Regular as tolerated
Analgesia: Tylenol 650mg q6 Ernestine, Soledad 5mg q6 PRN, Dilaudid 0.5mg q2h PRN
Neuro/vascular checks: q4h
AC/AP: Hold Therapeutic AC, Ok for DVT PPx. Okay to resume Plavix on 12/22/2023 at his usual dose and time
Activity: Ad Niki
Wound/Incisions/Drains: Routine
Abx: Continue antibiotics x 4 days, follow-up cultures
Dispo: RNF, anticipate discharge home 12/21/2023 pending clinical course.
--- NOTE | 2023-12-19 12:50 | OR.RPT ---
Operative Report
Operative Report
Patient Name: Darshan Mora
: 1940
Date of Operation: 12/19/2023
Preoperative Diagnosis: Acute cholecystitis
Postoperative Diagnosis: Gangrenous cholecystitis
Procedure(s):
Laparoscopic Cholecystectomy with Cholangiogram
Surgeon(s):
Dr. Bonner
Hotel Maintenance Technician(s):
ESTEVAN Cody
Anesthesia: General
Estimated Blood Loss: 11 cc
Urine Output: None
Drains/Lines/Implants: 19 [place] round Jose Luis drain in the gallbladder fossa
Specimens:
1. Gallbladder and contents
2. Gallbladder abscess for aerobic and anaerobic
HPI/Surgical Indications:
This is an 83-year-old male with a history of dementia who presents with a 1 to 2-week history of abdominal pain and food fear in the setting of 1 to 2 months of intermittent abdominal pain. Exam, labs and imaging are consistent with acute
cholecystitis. Risks/Benefits/Alternatives were discussed at length, and after allowing for 72 hours for his Plavix to washout the patient and his family agreed to proceed with surgery.
Operative Findings: Gangrenous cholecystitis. Gallbladder was decompressed with an aspiration needle. Critical view of safety obtained prior to a cholangiogram which demonstrated no filling defects and normal biliary anatomy. Duct ligated with a
clip followed by 0 PDS Endoloop. High insertion of the right hepatic artery along the cystic plate, this was preserved. A small branch to the gallbladder, from this artery was ligated with a clip. No clear cystic artery was identified. There was
a large abscess cavity in the fundus of the gallbladder which was cultured. 19 [place] round Jose Luis drain left in the right upper quadrant.
Procedure Description:
The patient was brought to the Operating Room and placed in the supine position with one arm tucked. Following uneventful induction of general endotracheal anesthesia, an orogastric tube was placed. The abdomen was prepped and draped in the usual
sterile fashion. A timeout was performed confirming the procedure, consent, and that IV antibiotics were infused and sequential compression devices were confirmed to be on. The abdomen was entered using a left subcostal Veress technique which
required a single pass followed by a right upper quadrant 11 mm Optiview trocar. Pneumoperitoneum to 15 mmHg pressure was obtained without difficulty and we confirmed that no injury had occurred during our entry. The patient was positioned in
reverse Trendelenberg and rotated with the right side up slightly. Two 5mm trocars were then placed along the right subcostal margin, and a 12 mm port in the epigastrium. The omentum and periduodenal fat overlying the gallbladder was carefully
peeled down which revealed a gangrenous/necrotic gallbladder. The gallbladder was also fairly tense and was decompressed using an aspiration needle. A locking grasping forceps was placed on the fundus of the gallbladder where it was then retracted
cephalad and to the right. Using appropriate grasping instruments, the peritoneum overlying the triangle of Calot was incised and extended superiorly on both the anterior and posterior gallbladder sage. The infundibulum was dissected off the
cystic plate. The presumed right hepatic artery could be seen inserting in this area. There was a short branch off of this to the gallbladder which was carefully clipped and ligated. No true cystic artery was identified. The cystic triangle was
dissected until a critical view of safety was achieved. The cystic duct/gallbladder junction in turn was identified, dissected circumferentially and a clip was placed. A ductotomy was made and a cholangiocatheter on an Roberson clamp was inserted into
the cystic duct. A C-arm was draped and brought into the field. An intra-operative cholangiogram was performed and was noted to have:
No filling defects in the biliary tree
No significant biliary dilation
Brisk flow of contrast into the duodenum
Normal biliary anatomy
The catheter was then removed and the cystic duct was controlled with a clip followed by a 0 PDS Endoloop. After ensuring both the artery and duct were divided, the gallbladder was freed from the liver using electrocautery. There was some spillage
of bile, but no spillage of stones. Near the fundus of the gallbladder there was a significant concentration of pus concerning for a localized perforation into the wall of the liver. The gallbladder bed was inspected and excellent hemostasis was
obtained. The right upper quadrant was flooded and suctioned until clear. A 19 [place] round Jose Luis drain was then advanced through the right lateralmost port up the right colic gutter and across our gallbladder fossa. This was secured at the skin
with a 2-0 nylon suture. The gallbladder was extracted through the 12 mm trocar site using an endocatch bag. The abdomen was again irrigated and excellent hemostasis was assured. All remaining trocars were then removed and the pneumoperitoneum was
evacuated. The 12 and 11 mm trocar site was closed using 0 PDS suture. All trocar sites were closed at the skin level using 4-0 Monocryl followed by Dermabond. Overall, the patient tolerated the procedure well and was taken to the Recovery Room
postoperatively in stable condition.
I was the attending physician and performed the procedure with assistance from the SHREDDED FILLER CIGAR MAKER MACHINE above. I was present for all portions of the case, excluding skin closure
Vasile Bonner MD
[2023-12-19] MEDS: NAMENDA 10 MG PO (17:11)
[2023-12-19] MEDS: PROSCAR 5 MG PO (17:11)
[2023-12-19] MEDS: RISPERDAL 0.25 MG PO (18:37)
[2023-12-19] MEDS: TORADOL 15 MG IV (22:11)
[2023-12-20] MEDS: ZOSYN 50 IV ×3 (01:02→11:59)
[2023-12-20] MEDS: RISPERDAL 0.25 MG PO ×2 (01:10→09:24)
[2023-12-20] MEDS: FLUSH (NSS) 2 FLUSH IV ×2 (01:11→07:21)
[2023-12-20 04:00] VITALS: BP 156/84
[2023-12-20 06:39] LABS: Hematocrit 33.2 % (39.0-52.0); Mean Corp Hgb Conc. 36.1 g/dL (33.0-37.0); Mean Corpuscular Hgb 32.9 pg (27.0-31.0); Platelet Count 345 10^3/uL (130-400); Red Blood Cell Count 3.65 10^6/uL (4.70-6.10); Red Cell Dist. Width 13.2 % (11.5-14.5); White Blood Cell Count 13.3 10^3/uL (4.8-10.8)
[2023-12-20 07:12] LABS: ALT (SGPT) 154 U/L (0-50); AST (SGOT) 197 U/L (17-59); Albumin 3.8 g/dl (3.5-5.0); Alkaline Phosphatase 348 U/L (38-126); Blood Urea Nitrogen 12 mg/dl (9-20); Calcium 9.4 mg/dl (8.4-10.2); Carbon Dioxide 24 mmol/L (22-30); Chloride 103 mmol/L (98-107); Estimated Creatinine Clearance 54 ml/min; Glucose 154 mg/dl (70-99); Magnesium 1.9 mg/dl (1.6-2.3); Potassium 3.5 mmol/L (3.5-5.1); Sodium 140 mmol/L (135-145); Total Bilirubin 1.7 mg/dl (0.2-1.3); Total Protein 6.1 g/dl (6.3-8.2); eGFR > 60.00
--- NOTE | 2023-12-20 07:33 | PTCARENOTE ---
@2130 ; Pt pulled right wrist IV OR site out with drainage of moderate amount of red blood on sheets. Pressure applied and folded 4x4 applied to site .Abdomen blinder applied to pt's abdomen to protect DREAD drain and site. @0330;med sitter
calling.Found pt sitting on side of bed with next to him.Gown and abdomen binder removed.Bloody drain sponges over bed, blood leaked over coviden and gown.Tiny amount of dark red blood remains in DREAD suction bulb.Pt can be slowly redirected
with his care.Pt remains oriented to self only.Med sitter and bed alarm maintained while pt's slept.
[2023-12-20 07:49] VITALS: BP 150/83
[2023-12-20] MEDS: PROTONIX 40 MG PO (08:00)
[2023-12-20] MEDS: NORVASC 5 MG PO (08:00)
[2023-12-20] MEDS: VISBIOME 1 CAP PO (08:01)
[2023-12-20] MEDS: EXELON PATCH 4.6 MG TRANSDERM (09:24)
--- NOTE | 2023-12-20 11:15 | CM ---
Patient seen at bedside with physician and patient daughter also present. Patient daughter completed IMM and signed form placed on chart. Patient daughter plans to transport home after discharge order given. Patient to be followed with [facility]. CM will
continue to follow for discharge planning needs.
Plan; home with [facility]
--- NOTE | 2023-12-20 11:21 | W.PN.HOSP.TC ---
Today's Communication/Plan
-
hopeful d/c today if cleared by surgery
Assessment / Plan
Assessment / Plan
pt is an 83 year old male
Acute cholecystitis -- apprec surgery, s/p lap henry 12/19/23--cont zosyn
Dementia with agitation sec to behavioral issues --Improved agitation -cw constant reorientation and medical tx. Restraints as needed for safety.
CAD s/p stents/CVA--holding plavix
essential HTN--cont amlodipine as able--if not, IV meds
HLD--can hold statin
chronic back pain--NO longer on valium
hx nerve pain/dropped foot--PT/OT as able
BPH--cont finasteride
DVT proph--SCDs as able
code status--full code
Anticipated Discharge: Within 24 hours
Subjective/Interval History
-
Date of Service: December 20, 2023
pt s/p henry--still has drained
Objective Data
-
Labs:
Laboratory Results
12/20/23 12/20/23
06:06 07:50
WBC 13.3 H Cancelled
Hgb 12.0 L Cancelled
Hct 33.2 L Cancelled
Plt Count 345 Cancelled
Sodium 140 Cancelled
Potassium 3.5 Cancelled
Chloride 103 Cancelled
Carbon Dioxide 24 Cancelled
BUN 12 Cancelled
Creatinine 1.1 Cancelled
Glucose 154 H Cancelled
Calcium 9.4 Cancelled
Total Bilirubin 1.7 H D Cancelled
AST 197 H Cancelled
ALT 154 H Cancelled
Alkaline Phosphatase 348 H Cancelled
Vital Signs:
max temp for 24 hours
12/19/23
13:30
Temp 98.5 F
Vital Signs
Temp Pulse Resp BP Pulse Ox
97.7 F 83 16 150/83 94
12/20/23 07:49 12/20/23 08:00 12/20/23 07:49 12/20/23 08:00 12/20/23 07:49
I&O
12/19/23 12/20/23 12/21/23
06:59 06:59 06:59
Intake Total 1450 / 1450 560 / 560
Balance 1450 / 1450 560 / 560
Review of Systems
-
All other systems: Reviewed and negative
Physical Exam
-
General: Well Developed, Well Nourished and No Apparent Distress
HEENT: Normocephalic and Atraumatic; Negative Oxygen
Respiratory: Clear to Auscultation; Negative Wheezes or Rhonchi
Cardiac: Regular Rhythm and S1/S2; Negative Murmur
GI: Soft, Nontender, Nondistended and Normal Bowel Sounds
Musculoskeletal: No Clubbing, No Cyanosis and No Edema
Neuro: Awake and Alert
--- NOTE | 2023-12-20 13:19 | W.PN.GS2 ---
Today's Communication / Plan
-
Dispo planning, ideally would like to remove DREAD before discharge.
Assessment / Plan
-
83 yo male with h/o CVA, dementia, CAD with remote stents on DAPT with LD of Plavix on ?12/14 presenting with ACC. Postoperative day 1 from a laparoscopic cholecystectomy with gangrenous cholecystitis.
Will reassess later today, if output improved may remove DREAD and plan for discharge later today.
Will need an additional 3 days of antibiotics
Okay to resume Plavix 12/21/2023
Time Spent
Total Time Spent with Patient (in minutes): 20
Subjective Data
-
Date of Service: December 20, 2023
Interval Events:
No acute events overnight. Slept well. Pain Controlled. Denies Nausea/Vomiting. Tolerating diet.
Objective Data
-
Intake and Output
12/19/23 12/20/23 12/21/23
06:59 06:59 06:59
Intake Total 1450 / 1450 560 / 560 480 / 480
Balance 1450 / 1450 560 / 560 480 / 480
Intake:
Oral fluids 1290 / 1290 560 / 560 480 / 480
IV fluids (Total) 60 / 60
IV piggybacks 100 / 100
Other:
Number of approximated MODERATE 2 1
amounts of urine
Vital Signs
Temp Pulse Resp BP Pulse Ox
97.7 F 83 16 150/83 94
12/20/23 07:49 12/20/23 08:00 12/20/23 07:49 12/20/23 08:00 12/20/23 07:49
Lab Results
12/20/23 07:50
12/20/23 07:50
Calcium Cancelled 12/20/23 07:50
Magnesium 1.9 mg/dl (1.6-2.3) 12/20/23 06:06
Total Bilirubin Cancelled 12/20/23 07:50
AST Cancelled 12/20/23 07:50
ALT Cancelled 12/20/23 07:50
Alkaline Phosphatase Cancelled 12/20/23 07:50
Total Protein Cancelled 12/20/23 07:50
Albumin Cancelled 12/20/23 07:50
Physical Exam
-
GENERAL/NEURO: Awake, Alert, no distress
CHEST: Unlabored breathing on RA
ABDOMEN: Soft, Non-Tender, Non-Distended, incisions clean dry and intact, DREAD serosanguineous.
--- NOTE | 2023-12-20 13:35 | PN.CDI ---
CDI
- -
CDI:
Physician Documentation Request
Admit Date: 12/16/23 02:34
Dear Doctor Srinivas,
Patient admitted with acute cholecystitis.
12/17 Potassium level: 3.4
12/17 Potassium chloride 20 meq PO administered
Based on the above, could you clarify in the progress notes, the appropriate diagnosis, if significant, that supports the above abnormalities and additional evaluation, monitoring and/or treatment rendered:
Hypokalemia
Abnormal lab value insignificant
Other
Use of terms such as suspected, likely, concern for, or probable (associated with a specific diagnosis that is being evaluated, monitored, or treated as if it exists) are acceptable and can be coded in the inpatient setting, when documented at the
time of discharge.
Thank you,
Kacie Quinteros RN, BSN
CDI Specialist
Available via Asher text
Please use your independent medical judgment in providing your response.
[2023-12-20 15:12] VITALS: BP 132/71
--- NOTE | 2023-12-20 16:58 | PTCARENOTE ---
Addendum entered by Katja Gavin RN 12/20/23 16:58:
Surgeon removed DREAD drain. Site covered with gauze and tape. Pt discharging home now, dressing c/d/i.
Original Note:
Surgron removed DREAD drain. Site covered with gauze and tape. Pt discharging home now, dressing c/d/i.
--- NOTE | 2023-12-20 19:08 | W.DCSUMMARY ---
Discharge Summary
Discharge Data
Date of Admission: 12/16/23
Date of Discharge: 12/20/23
-
Pending Results: No
Hospital Course
Primary care physician : Kwan Newberry
Principal Discharge diagnosis : Acute cholecystitis status post lap cholecystectomy with intraoperative cholangiogram
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
benign prostatic hyperplasia
Hospital Course : Patient is an 83-year-old male with a history of dementia who relies on his for everything and was unaware of his surroundings at baseline. He stated he has been having stomach pain for the last month. He was unable to
participate with review of systems and history was obtained by the family at bedside. He has diarrhea and is not eating. He he was seen in the emergency department on the Tuesday prior to admission with stomach pain. He had blood work done which
was normal and was discharged. Upon looking at the ED documentation however; family stated that they were getting antsy and because he was now asymptomatic they wanted to take him home. He presented again with complaints of abdominal pain. Pain
seems to be aggravated by eating and because of that he does not eat. Workup found him to have acute cholecystitis. Patient was had plans to be taken to the operating room but because he was on Plavix he needed washout of the Plavix first.
Patient was admitted.
Problem #1: Acute cholecystitis status post lap cholecystectomy. Patient was admitted and seen in consultation by surgery. Because of the Plavix washout it was felt that the patient may benefit from a cholecystectomy tube. However, interventional
radiology stated that they needed to wait the same amount of time to place the tube just as if he would need surgery. In that event, it was decided to wait for the patient's Plavix washout and the patient was taken to the operating room on November
2023. Patient had lap cholecystectomy with intraoperative cholangiogram which was good. Drain was placed. Patient's drain was taken out today. Patient's diet was advanced. Patient is stable for discharge at this time.
Problem #2: All other medical issues. 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
nerve pain with dropfoot, benign prostatic hyperplasia. These medical issues were stable during his hospitalization. Medications were continued as able.
Patient is stable to return home at this time. If there are any questions regarding this dictation or his hospital stay, please and hesitate to call. Our office number is [phone].
Important imaging findings :
IMPRESSION:
Findings suspicious for acute cholecystitis. See above. Negative sonographic Mena sign, however by report patient received pain medication within the ER.
Procedure findings :
Primary Surgeon: Vasile Bonner MD
Assisting Surgeon: None
Pre-op Diagnosis: Acute cholecystitis
Post-op Diagnosis: Gangrenous cholecystitis
Procedure Performed: Laparoscopic cholecystectomy with cholangiogram
Anesthesia Type: General
Specimen / Cultures:
1. Gallbladder and contents
2. Gallbladder abscess
Estimated Blood Loss: 11 cc
Complications: None
Discharge Plan
-
Patient Disposition: Home (Routine Discharge)
Discharge Diagnosis/Procedures: Gangrenous cholecystitis, Laparoscopic cholecystectomy with cholangiogram, dementia with agitation secondary to behavioral issues, coronary artery disease status post stents with stroke in the past, essential
hypertension, hyperlipidemia, chronic back pain, history of nerve pain with drop foot in the past, benign prostatic hyperplasia
Condition: Good
Diet: As tolerated
Activity: No strenuous activity
Driving Restrictions: No driving
Bathing Restrictions: OK to Shower
Activity Restrictions/Additional Instructions:
Instructions following Laparoscopic cholecystectomy
Please call [phone] if you have any questions or concerns after your surgery.
Wound Care:
Your incisions are covered with skin glue which will come off on it�s own in 5-10 days.
It is ok to shower the day after your surgery. Do not scrub the incisions, let soap and water wash over them and pat dry.
� Bruising around your incisions is normal.
� Using ice packs will help minimize this swelling.
� No swimming or soaking incisions for 1 week.
� Your stitches will dissolve and do not need to be removed.
Urinary retention:
If you are unable to urinate 6-8 hours after your surgery, please call [phone] to discuss further management.
Activity:
No heavy lifting more than 15 pounds for the next 3 weeks, then you may gradually lift heavier objects as tolerated by discomfort. Otherwise activity as tolerated by your comfort level.
Pain Management:
Use Tylenol, ibuprofen and ice packs to treat your pain.
� You may take 650 milligrams of Tylenol (Max 3 grams per day) every 6 hours, and 600 mg of ibuprofen also every 6 hours. (you can alternate them every 3 hours)
� You may use an ice pack to your incision as needed.
� If you still have pain not controlled by these measures, take your prescription pain medication as prescribed.
Medications:
You may resume your home medications.
YOU CAN RESTART YOUR CLOPIDOGREL ON AT YOUR USUAL DOSE ON 12/22/23 AT THE USUAL TIME
Bowel Medications:
Prescription pain medication can make you constipated. If you take this medication, also take colace 100 mg twice daily (this is over the counter). If this is not sufficient, you may take Miralax (polyethylene glycol) to help move your bowels.
Diet:
After your procedure, there are no dietary restrictions. You may notice loose stools for up to 4 weeks after surgery with fatty meals, if this is the case you may have to adjust your diet as needed.
Driving restrictions:
No driving if you are taking prescription pain medication or if you think your normal reaction time and attentiveness has been slowed by your surgery.
Things to Look out for:
Worsening Abdominal pain, redness or drainage from incision
Call Doctor for:
Please call if you notice worsening redness or drainage from incision(s) lasting longer than 5 days after your surgery, any foul-smelling drainage from the incision, pain not controlled by pain medications, persistent nausea and vomiting, or for any
fevers greater than 101.3 F. The number for questions/concerns is [phone]
Follow-up:
Follow-up appointment will be scheduled with your surgeon in 3-4 weeks. Please call prior to your appointment if you have any questions or concerns. [phone]
Referrals:
Kwan Newberry MD [Family Provider] - in less than 1 week
Vasile Bonner MD [Active] - in two to four weeks
Prescriptions:
New
acetaminophen 325 mg Tablet
650 mg PO Q4HPRN PRN (Reason: mild pain, fever >100.4) Qty: 0 0RF
risperidone 0.25 mg Tablet
0.25 mg PO Q6HPRN PRN (Reason: agitation) Qty: 10 0RF
Lactobac/Bifidobac [Visbiome]
1 cap PO DAILY Qty: 30 0RF
amoxicillin-pot clavulanate 500-125 mg tablet
1 tab PO BID 3 Days Qty: 6 0RF
Continued
aspirin 81 MG tablet,delayed release (DR/EC)
81 mg PO Q48H
finasteride 5 MG tablet
5 mg PO QPM
atorvastatin 40 mg Tablet
40 mg PO QPM
amlodipine 5 mg Tablet
5 mg PO DAILY
pantoprazole 40 mg Tablet,Delayed Release (Dr/Ec)
40 mg PO DAILY
memantine 10 mg Tablet
10 mg PO QPM
rivastigmine 4.6 mg/24 hour patch 24 hour
1 patch topical DAILY
Held
diazepam [Valium] 2 mg tablet
2 mg PO BID PRN (Reason: muscle spasm) Qty: 7 0RF
Hold Instructions: discuss restarting this with your family doctor--not the best med with dementia
clopidogrel 75 mg Tablet
75 mg PO DAILY
Hold Instructions: Resume on 12/22/23.
Discharge Orders:
Discharge Patient (As Directed); Ordered 12/20/23
Ordered By: Paz Ledezma
Discharge Date and Time
Discharge Date/Time: 12/20/23 17:01
Print Language: [place] LUCI[place]
== END 2023-12-20 17:01 | disposition home health service (06) | DRG 418 ==
LOC: 3 WEST ACU 02:34
PROVIDERS: Emergency Medicine; Nurse Practitioner Gerontology; Radiology Vascular & Interventional Radiology; ADMITTING PHYSICIAN Surgery; ATTENDING PHYSICIAN Internal Medicine; EMERGENCY PHYSICIAN Student in an Organized Health Care Education/Training Program; FAMILY PHYSICIAN Family Medicine
PROC: 0FT44ZZ Resection of Gallbladder, Percutaneous Endoscopic Approach (ICD-10-PCS; 2023-12-19)
DX: K80.00 Calculus of gallbladder with acute cholecystitis without obstruction (principal); F02.811 Dementia in other diseases classified elsewhere, unspecified severity, with agitation; I10 Essential (primary) hypertension; G30.9 Alzheimer's disease, unspecified; K82.A1 Gangrene of gallbladder in cholecystitis; I25.10 Atherosclerotic heart disease of native coronary artery without angina pectoris; I25.2 Old myocardial infarction; Z95.5 Presence of coronary angioplasty implant and graft; E78.00 Pure hypercholesterolemia, unspecified; N40.0 Benign prostatic hyperplasia without lower urinary tract symptoms; G89.29 Other chronic pain; M54.9 Dorsalgia, unspecified; K21.9 Gastro-esophageal reflux disease without esophagitis; K82.8 Other specified diseases of gallbladder; G62.9 Polyneuropathy, unspecified; M21.379 Foot drop, unspecified foot; M51.9 Unspecified thoracic, thoracolumbar and lumbosacral intervertebral disc disorder; E87.6 Hypokalemia; Z79.02 Long term (current) use of antithrombotics/antiplatelets; Z79.82 Long term (current) use of aspirin; Z79.899 Other long term (current) drug therapy; Z86.73 Personal history of transient ischemic attack (TIA), and cerebral infarction without residual deficits; Z87.440 Personal history of urinary (tract) infections
CPT/HCPCS: 88304; 74176; 74300; 76000; 76700; 80048; 80053; 81003; 83735; 85025; 85027; 85610; 86850; 86900; 86901; 87070; 87075; 87205; 96361; 96365; 96375; 97116; 97162; 97166; 99285; A4300; C1776

== ENCOUNTER → 2024-01-10 18:43 | Outpatient (REF) | payer OTHER, SELFPAY | LOC: MRI 18:43 | PROVIDERS: ATTENDING PHYSICIAN Psychiatry & Neurology Neurology; PRIMARYCARE PHYSICIAN Family Medicine | DX: I63.9 Cerebral infarction, unspecified (principal) | CPT/HCPCS: 70551 ==

== ENCOUNTER → 2024-01-13 11:20 | Outpatient (REF) | payer OTHER, SELFPAY ==
--- NOTE | 2024-01-13 13:29 | EEG.RPT ---
Electroencephalogram Report
Recording
Date of EE01/13/24
Type of EEG: Routine
Length of EEG recordin minutes
Done with Video Recording: Yes
Patient Status: Outpatient
Recording Conditions: Awake, Drowsy and Asleep
Hyperventilation Performed: No
Photic Stimulation Performed: Yes
Report
LESS THAN 1 HOUR EEG REPORT
LESS THAN 1 HOUR EEG INTERPRETATION:
Mildly abnormal study for age based on generalized slowing demonstrated bihemispherically equally
CLINICAL CORRELATION:
Although normative values not been established for a person of this advanced age the patient�s symmetry of the background suggests that this study was suggestive of mild bihemispheric cortical dysfunction. No epileptiform features were demonstrated.
If concerns remain regarding epilepsy, prolonged monitoring may be of assistance.
Clinical correlation is advised.
METHODS:
A 21-channel digital electroencephalogram (EEG) was performed in the [facility]. The 10/20 international system of electrode placement was used with ECG and lateral/vertical eye movements recorded. [employer] system
quantitative analysis was performed.
IMPRESSION(S):
Quality of study
Fair, with muscle artifact frequently
Background
Expected amplitude
Anterior-posterior voltage gradient differentiation: Fair
Theta frequency maximal background demonstrated
Sleep
Drowsiness present
Stage 2 suggested
Hyperventilation
Not performed
Photic Stimulation
Failed to activate the record
ECG
Normal rhythm
== END ==
LOC: EEG 11:20
PROVIDERS: ATTENDING PHYSICIAN Psychiatry & Neurology Neurology; FAMILY PHYSICIAN Family Medicine
DX: G40.509 Epileptic seizures related to external causes, not intractable, without status epilepticus (principal)
CPT/HCPCS: 95816

== ENCOUNTER 2024-09-03 14:47 | Emergency (ER) | payer OTHER, SELFPAY ==
[2024-09-03 14:52] VITALS: BP 98/60
[2024-09-03 15:11] LABS: % Basophils 0.6 % (0-2); % Immature Granulocytes 0.4 % (0-0.5); % Lymphocytes 17.5 % (20.5-51.1); % Monocytes 8.4 % (1.7-9.3); % Neutrophils 69.1 % (42.2-75.2); Absolute Basophils 0.1 10^3/uL (0-0.2); Absolute Eosinophils 0.3 10^3/uL (0-0.7); Absolute Lymphocytes 1.4 10^3/uL (1.2-3.4); Absolute Monocytes 0.7 10^3/uL (0.1-0.6); Absolute Neutrophils 5.3 10^3/uL (1.4-6.5); Hematocrit 39.6 % (39.0-52.0); Hemoglobin 14.2 g/dL (13.0-18.0); Mean Corp Hgb Conc. 35.9 g/dL (33.0-37.0); Mean Corpuscular Hgb 34.1 pg (27.0-31.0); Mean Corpuscular Volume 95.2 fL (80.0-94.0); Mean Platelet Volume 9.1 fL (7.4-10.4); Nucleated Red Blood Cells % 0 % (-); Platelet Count 261 10^3/uL (130-400); Red Blood Cell Count 4.16 10^6/uL (4.70-6.10); Red Cell Dist. Width 12.3 % (11.5-14.5); White Blood Cell Count 7.7 10^3/uL (4.8-10.8)
[2024-09-03 15:36] LABS: ALT (SGPT) 15 U/L (0-50); AST (SGOT) 18 U/L (17-59); Albumin 4.5 g/dl (3.5-5.0); Alkaline Phosphatase 64 U/L (38-126); Blood Urea Nitrogen 23 mg/dl (9-20); Calcium 9.5 mg/dl (8.4-10.2); Carbon Dioxide 21 mmol/L (22-30); Chloride 112 mmol/L (98-107); Glucose 138 mg/dl (70-99); Potassium 4.3 mmol/L (3.5-5.1); Sodium 138 mmol/L (135-145); Total Bilirubin 0.8 mg/dl (0.2-1.3); Total Protein 6.8 g/dl (6.3-8.2); eGFR 42.75
[2024-09-03 19:18] VITALS: BP 146/78
[2024-09-03 19:19] VITALS: BMI 25.1
[2024-09-03 20:00] VITALS: BP 141/70
[2024-09-03] MEDS: NSS 1000 IV (20:02)
--- NOTE | 2024-09-03 20:24 | ED.GENMED ---
History of Present Illness
General
Chief Complaint: Abdominal Symptoms
Time Seen by Provider: 09/03/24 19:14
History of Present Illness
History of Present Illness:
84-year-old male with history of dementia, history of CAD status post stenting with Plavix, hyperlipidemia presenting to the emergency department for nausea and vomiting. Patient arrives with . Patient is very limited historian given his
underlying dementia. She notes that every time patient eats, gets severe abdominal pain, nausea, vomiting and has difficulty tolerating p.o. Symptoms will improve after a few hours and then returned after the next meal. He has had some diarrhea.
Denies any blood in the stool. She does note that he has had a history of a gastric ulcer in the past as well as a cholecystectomy. Denies any fever. Denies any known sick contacts. Denies any chest pain or difficulty breathing or additional
acute medical complaints. Patient has been following with his doctor, has tried multiple medications for suspected GERD, without relief
Past History
Past History
ED Past Medical History: CAD, HTN, Hypercholesterolemia and Other (Lumbar disc disease, BPH, UTI)
ED Past Surgical History: Cardiac (PTCA with stent February 2007) and Orthopedic (Knee replacement)
Social History
Tobacco: Non-smoker
Alcohol: Occasional (Rare)
Drug: None
Personal:
Living: with family
Employment: Retired
Family History
Family History: Hypertension
Phy Exam
Physical Exam
Physical Exam:
General: Well-appearing, no clinical signs of dehydration, nontoxic and in no acute distress
HEENT: protecting airway
Neck: appears supple
CV: Normal heart rate, regular rhythm
Resp: No accessory muscle use, no increased work of breathing, lungs clear to auscultation bilaterally
Abd: Soft and non-distended, no tenderness to palpation
Extremities: No deformities, no swelling
Neuro: alert, no focal neurologic deficit
: deferred
Rectal: deferred
Psych: Normal affect
Skin: Intact
Course
Orders/Labs/Results
Orders:
Orders
09/03/24 15:02
CMP [Comprehensive Metabolic Panel] Urgent
Complete Blood Count/With Diff Urgent
09/03/24 19:56
CT Abd/pelvis W Iv Cont Urgent
Comment:
Reason For Exam: n/v after eating x 2 weeks
0.9% Sodium Chloride 1000 ml [Nss] 1,000 ml IV BOLUS
Abnormal Lab Results
09/03/24
15:02
RBC 4.16 L 10^6/uL
(4.70-6.10)
MCV 95.2 H fL
(80.0-94.0)
MCH 34.1 H pg
(27.0-31.0)
Absolute Monos (auto) 0.7 H 10^3/uL
(0.1-0.6)
Lymphocytes % 17.5 L %
(20.5-51.1)
Chloride 112 H mmol/L
(98-107)
Carbon Dioxide 21 L mmol/L
(22-30)
BUN 23 H mg/dl
(9-20)
Creatinine 1.6 H mg/dL
(0.7-1.3)
Glucose 138 H mg/dl
(70-99)
09/03/24 15:02
09/03/24 15:02
Vital Signs
Initial and Last Documented VS:
Initial Vital Signs
Pulse Resp BP Pulse Ox
82 16 98/60 97
09/03/24 14:52 09/03/24 14:52 09/03/24 14:52 09/03/24 14:52
Last Documented Vital Signs
Pulse Resp BP Pulse Ox
55 17 141/70 98
09/03/24 20:00 09/03/24 20:00 09/03/24 20:00 09/03/24 19:45
MDM/Problems Addressed
MDM/Problems Addressed:
84-year-old male with history of dementia presenting for nausea and vomiting and abdominal discomfort after eating. Vital signs are significant for hypotension, however improved without intervention.
On exam patient is resting comfortably, no acute distress. Overall well-appearing. No tenderness to the abdomen. Ultimately suspect gastric pathology. notes that they have tried multiple gastric medications, as prescribed by the PCP without
relief. Ultimately feel patient would benefit from a nonemergent EGD. However given duration of symptoms and patient being a limited historian, we will proceed with CT abdominal imaging to rule out additional acute pathology.
22:00 - CT without acute pathology to explain patient's symptoms. Labs do show mild CORY. However, normal sodium. Again without concern for significant dehydration. Ultimately feel stable for discharge, however with outpatient GI follow-up.
Strict return precautions communicated and patient and verbalized understanding.
*Critical Care Note
Total Time (30-74mins, 75-104mins- exclusive of procedures): Not Applicable
ED Attending Note
-
Portions of this chart may have been created with voice recognition software.� Occasional wrong word or��sound alike� substitutions may have occurred due to the inherent limitations of voice recognition software.
Discharge Plan
Departure
Prescriptions:
No Action
aspirin 81 MG tablet,delayed release (DR/EC)
81 mg PO Q48H
finasteride 5 MG tablet
5 mg PO QPM
diazepam [Valium] 2 mg tablet
2 mg PO BID PRN (Reason: muscle spasm) Qty: 7 0RF
atorvastatin 40 mg Tablet
40 mg PO QPM
clopidogrel 75 mg Tablet
75 mg PO DAILY
amlodipine 5 mg Tablet
5 mg PO DAILY
pantoprazole 40 mg Tablet,Delayed Release (Dr/Ec)
40 mg PO DAILY
memantine 10 mg Tablet
10 mg PO QPM
rivastigmine 4.6 mg/24 hour patch 24 hour
1 patch topical DAILY
acetaminophen 325 mg Tablet
650 mg PO Q4HPRN PRN (Reason: mild pain, fever >100.4) Qty: 0 0RF
risperidone 0.25 mg Tablet
0.25 mg PO Q6HPRN PRN (Reason: agitation) Qty: 10 0RF
Lactobac/Bifidobac [Visbiome]
1 cap PO DAILY Qty: 30 0RF
amoxicillin-pot clavulanate 500-125 mg tablet
1 tab PO BID 3 Days Qty: 6 0RF
Referrals:
Kwan Newberry MD [Family Provider] -
Interventions
Interventions:
*Risk Screen - Suicide Last Done: 09/03/24 14:52
*General Assessment Last Done: 09/03/24 14:52
OZ-Kumhej-Qexvaxbxqs Assessment Last Done: 09/03/24 19:20
Discharge Date and Time
Print Language: PORTUGUESE
[2024-09-03 21:00] VITALS: BP 156/71
[2024-09-03 22:00] VITALS: BP 163/76
== END 2024-09-03 22:22 | disposition home or self-care (01) ==
LOC: EMR 14:47
PROVIDERS: Emergency Medicine; EMERGENCY PHYSICIAN Student in an Organized Health Care Education/Training Program; FAMILY PHYSICIAN Family Medicine
DX: R11.2 Nausea with vomiting, unspecified (principal); R10.9 Unspecified abdominal pain; F03.90 Unspecified dementia, unspecified severity, without behavioral disturbance, psychotic disturbance, mood disturbance, and anxiety; N17.9 Acute kidney failure, unspecified; I10 Essential (primary) hypertension; I25.10 Atherosclerotic heart disease of native coronary artery without angina pectoris; E78.00 Pure hypercholesterolemia, unspecified; N40.0 Benign prostatic hyperplasia without lower urinary tract symptoms; Z95.5 Presence of coronary angioplasty implant and graft; Z96.659 Presence of unspecified artificial knee joint; Z87.440 Personal history of urinary (tract) infections; Z87.11 Personal history of peptic ulcer disease; Z79.02 Long term (current) use of antithrombotics/antiplatelets; Z90.49 Acquired absence of other specified parts of digestive tract
CPT/HCPCS: 99284; 96360; 74177; 80053; 85025; Q9967

== ENCOUNTER 2024-09-19 16:23 | Outpatient (RCR) | payer OTHER, SELFPAY | END 2024-09-19 23:59 | disposition home or self-care (01) | LOC: RPT 16:23 | PROVIDERS: ATTENDING PHYSICIAN Psychiatry & Neurology Neurology; FAMILY PHYSICIAN Family Medicine | DX: R26.81 Unsteadiness on feet (principal); M54.59 Other low back pain; Z73.6 Limitation of activities due to disability; R26.89 Other abnormalities of gait and mobility; F03.90 Unspecified dementia, unspecified severity, without behavioral disturbance, psychotic disturbance, mood disturbance, and anxiety; M62.81 Muscle weakness (generalized); R29.6 Repeated falls | CPT/HCPCS: 97110; 97163; 97535 ==

== ENCOUNTER 2024-10-04 15:04 | Outpatient (RCR) | payer OTHER, SELFPAY | END 2024-10-04 23:59 | disposition home or self-care (01) | LOC: RPT 15:04 | PROVIDERS: ATTENDING PHYSICIAN Psychiatry & Neurology Neurology; FAMILY PHYSICIAN Family Medicine | DX: R26.81 Unsteadiness on feet (principal); M54.59 Other low back pain; Z73.6 Limitation of activities due to disability; R26.89 Other abnormalities of gait and mobility; F03.90 Unspecified dementia, unspecified severity, without behavioral disturbance, psychotic disturbance, mood disturbance, and anxiety; M62.81 Muscle weakness (generalized); R29.6 Repeated falls | CPT/HCPCS: 97110; 97112 ==

== ENCOUNTER 2025-01-17 11:43 | Emergency (ER) | payer OTHER, SELFPAY ==
[2025-01-17 11:48] VITALS: BP 132/75
--- NOTE | 2025-01-17 12:33 | ED.GENMED ---
History of Present Illness
General
Chief Complaint: Abdominal Pain
Time Seen by Provider: 01/17/25 12:01
History of Present Illness
History of Present Illness:
84-year-old male presents to the emergency department for evaluation of abdominal pain and diarrhea for the past 2 days. states he has been extremely lethargic and sleeping often over the past 2 days as well. No vomiting but does seem to be
having difficulty swallowing fluids and looks as though he may vomit. Patient cannot female history secondary to severe dementia. No fevers reported by . Prior abdominal surgical history includes cholecystectomy
Past History
Past History
ED Past Medical History: CAD, HTN, Hypercholesterolemia and Other (Lumbar disc disease, BPH, UTI)
ED Past Surgical History: Cardiac (PTCA with stent February 2007) and Orthopedic (Knee replacement)
Social History
Tobacco: Non-smoker
Alcohol: Occasional (Rare)
Drug: None
Personal:
Living: with family
Employment: Retired
Family History
Family History: Hypertension
Review of Systems
Review of Systems
Allergies reviewed?: Yes
All Other Systems: ROS reviewed and negative except as documented in HPI and ROS
Phy Exam
Physical Exam
Physical Exam:
GEN: Well appearing, NAD, WDWN
HEENT: Oral mucosa moist, no scleral icterus
Cardiac: Regular rate and rhythm, no murmurs
Lung: No respiratory distress, no tachypnea
Abdomen: Soft, diffuse tenderness to all 4 quadrants, no significant pain response however, no rigidity
MSK: No gross deformity or injuries
Skin: Good color, no pallor or jaundice, no rashes
Neuro: AO x3, moves all extremities freely
Psych: Calm, cooperative
Course
Orders/Labs/Results
Orders:
Orders
01/17/25 12:32
CT Abd/Pel (IV only)-DH only Urgent
Comment:
Reason For Exam: abd pain/ diarrhea
0.9% Sodium Chloride 1000 ml [Nss] 1,000 ml IV BOLUS
01/17/25 12:57
Complete Blood Count/With Diff Urgent
Comprehensive Metabolic Panel Urgent
Lipase Urgent
Abnormal Lab Results
01/17/25
12:57
RBC 4.15 L 10^6/uL
(4.70-6.10)
MCV 95.9 H fL
(80.0-94.0)
MCH 32.0 H pg
(27.0-31.0)
Absolute Monos (auto) 0.9 H 10^3/uL
(0.1-0.6)
Lymphocytes % 16.2 L %
(20.5-51.1)
Monocytes % 10.6 H %
(1.7-9.3)
Glucose 135 H mg/dl
(70-99)
01/17/25 12:57
01/17/25 12:57
Vital Signs
Initial and Last Documented VS:
Initial Vital Signs
Temp Pulse Resp BP Pulse Ox
97.7 F 93 13 132/75 97
01/17/25 11:48 01/17/25 11:48 01/17/25 11:48 01/17/25 11:48 01/17/25 11:48
Last Documented Vital Signs
Temp Pulse Resp BP Pulse Ox
97.7 F 93 13 132/75 97
01/17/25 11:48 01/17/25 11:48 01/17/25 11:48 01/17/25 11:48 01/17/25 12:33
MDM/Problems Addressed
MDM/Problems Addressed:
Labs and imaging are reassuring. Likely self-limited viral syndrome versus foodborne illness, patient is able to tolerate fluids orally, discussed supportive care with
*Pulse Oximetry
SaO2: 97
Oxygen Mode of Delivery: Room air
Patient hypoxic: no
*Critical Care Note
Total Time (30-74mins, 75-104mins- exclusive of procedures): Not Applicable
ED Attending Note
-
Portions of this chart may have been created with voice recognition software.� Occasional wrong word or��sound alike� substitutions may have occurred due to the inherent limitations of voice recognition software.
Discharge Plan
Departure
Patient Disposition: Home (Routine Discharge)
Date of Disposition: 01/17/25
Time of Disposition: 16:03
Patient with high blood pressure during this ER visit?: No
Discharge Problem:
Diarrhea
Instructions: Diarrhea in teens and adults
Prescriptions:
No Action
aspirin 81 MG tablet,delayed release (DR/EC)
81 mg PO Q48H
finasteride 5 MG tablet
5 mg PO QPM
diazepam [Valium] 2 mg tablet
2 mg PO BID PRN (Reason: muscle spasm) Qty: 7 0RF
atorvastatin 40 mg Tablet
40 mg PO QPM
clopidogrel 75 mg Tablet
75 mg PO DAILY
amlodipine 5 mg Tablet
5 mg PO DAILY
pantoprazole 40 mg Tablet,Delayed Release (Dr/Ec)
40 mg PO DAILY
memantine 10 mg Tablet
10 mg PO QPM
rivastigmine 4.6 mg/24 hour patch 24 hour
1 patch topical DAILY
acetaminophen 325 mg Tablet
650 mg PO Q4HPRN PRN (Reason: mild pain, fever >100.4) Qty: 0 0RF
risperidone 0.25 mg Tablet
0.25 mg PO Q6HPRN PRN (Reason: agitation) Qty: 10 0RF
Lactobac/Bifidobac [Visbiome]
1 cap PO DAILY Qty: 30 0RF
amoxicillin-pot clavulanate 500-125 mg tablet
1 tab PO BID 3 Days Qty: 6 0RF
Referrals:
Kwan Newberry MD [Family Provider, Family Practice]
Interventions
Interventions:
*Risk Screen - Suicide Last Done: 01/17/25 11:48
*General Assessment Last Done: 01/17/25 11:48
*Neglect/Abuse Screening Last Done: 01/17/25 11:48
*ED COVID-19 Vaccine History Last Done: 01/17/25 11:48
*Nursing Disposition Last Done: 01/17/25 16:10
JP-Eseryn-Mhybechbjg Assessment Last Done: 01/17/25 13:00
Discharge Date and Time
Discharge Date/Time: 01/17/25 16:11
Print Language: DANISH
[2025-01-17] MEDS: NSS 1000 IV (12:56)
[2025-01-17 13:05] LABS: Hematocrit 39.8 % (39.0-52.0); Hemoglobin 13.3 g/dL (13.0-18.0); Mean Corp Hgb Conc. 33.4 g/dL (33.0-37.0); Mean Corpuscular Volume 95.9 fL (80.0-94.0); Nucleated Red Blood Cells % 0 % (-); Platelet Count 286 10^3/uL (130-400); Red Cell Dist. Width 12.8 % (11.5-14.5)
[2025-01-17 13:37] LABS: ALT (SGPT) 21 U/L (0-50); AST (SGOT) 19 U/L (17-59); Albumin 4.1 g/dl (3.5-5.0); Alkaline Phosphatase 74 U/L (38-126); Blood Urea Nitrogen 18 mg/dl (9-20); Calcium 9.4 mg/dl (8.4-10.2); Carbon Dioxide 25 mmol/L (22-30); Chloride 105 mmol/L (98-107); Glucose 135 mg/dl (70-99); Lipase 228 U/L (23-300); Potassium 4.4 mmol/L (3.5-5.1); Sodium 136 mmol/L (135-145); Total Protein 6.6 g/dl (6.3-8.2); eGFR 54.85
== END 2025-01-17 16:11 | disposition home or self-care (01) ==
LOC: EMR 11:43
PROVIDERS: Physician Assistant; EMERGENCY PHYSICIAN Emergency Medicine; FAMILY PHYSICIAN Family Medicine
DX: R19.7 Diarrhea, unspecified (principal); F03.C0 Unspecified dementia, severe, without behavioral disturbance, psychotic disturbance, mood disturbance, and anxiety; I25.10 Atherosclerotic heart disease of native coronary artery without angina pectoris; I10 Essential (primary) hypertension; E78.00 Pure hypercholesterolemia, unspecified; N40.0 Benign prostatic hyperplasia without lower urinary tract symptoms; M51.369 Other intervertebral disc degeneration, lumbar region without mention of lumbar back pain or lower extremity pain; Z79.82 Long term (current) use of aspirin; Z79.02 Long term (current) use of antithrombotics/antiplatelets; Z95.5 Presence of coronary angioplasty implant and graft; Z96.659 Presence of unspecified artificial knee joint; Z82.49 Family history of ischemic heart disease and other diseases of the circulatory system
CPT/HCPCS: 99284; 96360; 74177; 80053; 83690; 85025; Q9967